=== PATIENT | male | born 1930 | race Caucasian/White ===

== ENCOUNTER 2018-05-08 21:56 | Inpatient (IN) | payer MEDICARE, BC ==
[2018-05-08] MEDS ORDERED: SODIUM CHLORIDE 0.9% 1,000 ML IV STA (22:25)
[2018-05-08 22:35] LABS: Basophils % (A) 0 %; Eosinophils # (A) 0.1 k/uL (0-0.7); Eosinophils % (A) 1 %; HCT 40.3 % (39.0-53.0); HGB 13.4 gm/dL (13.0-17.5); Lymphocytes # (A) 0.7 k/uL (1.0-4.8); Lymphocytes % (A) 11 %; MCH 31.2 pg (25.0-35.0); MCHC 33.3 g/dL (31.0-37.0); MCV 93.9 fL (80.0-100.0); Mean Platelet Volume 8.9; Monocytes # (A) 0.1 k/uL (0-1.0); Monocytes % (A) 2 %; Neutrophils # (A) 5.4 k/uL (1.3-7.7); Neutrophils % (A) 86 %; Platelet Count 109 k/uL (150-450); RBC 4.29 m/uL (4.30-5.90); RDW 13.8 % (11.5-15.5); WBC 6.3 k/uL (3.8-10.6)
[2018-05-08 22:48] LABS: Albumin 4.2 g/dL (3.5-5.0); Calcium 8.6 mg/dL (8.4-10.2); Potassium 4.8 mmol/L (3.5-5.1); Total Bilirubin 0.6 mg/dL (0.2-1.3); Total Protein 6.6 g/dL (6.3-8.2)
--- NOTE | 2018-05-08 22:51 | XR ---
EXAMINATION TYPE: XR chest 2V DATE OF EXAM: 05/08/2018 COMPARISON: NONE HISTORY: Chest pain TECHNIQUE: Frontal and lateral views of the chest are obtained. FINDINGS: Heart is enlarged. There is some pulmonary vascular congestion. There is some blunting of costophrenic angles. There is left axillary pacemaker with the lead tips in the right ventricle. Ther e is coarse interstitial pulmonary density. IMPRESSION: Pulmonary interstitial fibrosis. There is probably mild congestive heart failure.
[2018-05-08 22:58] LABS: INR 1.1 (<1.2); Partial Thromboplastin Time 25.7 sec (22.0-30.0); Prothrombin Time 10.3 sec (9.0-12.0)
[2018-05-08 23:05] LABS: Creatine Kinase MB 1.5 ng/mL (0.0-2.4)
[2018-05-08] MEDS ORDERED: ALBUTEROL NEBULIZED 2.5 MG/3 ML INHALATION STA (23:37)
[2018-05-08] MEDS ORDERED: DEXAMETHASONE 4 MG TAB PO STA (23:37)
[2018-05-08] MEDS ORDERED: IPRATROPIUM 0.5 MG/2.5 ML NEBU INHALATION STA (23:37)
[2018-05-08] MEDS: ASPIRIN 81 MG PO STA ×2 (23:49)
--- NOTE | 2018-05-09 00:06 | CT ---
EXAMINATION TYPE: CT angio chest DATE OF EXAM: 05/08/2018 11:42 PM COMPARISON: NONE HISTORY: No prior, chest pain and SOB, history of HTN, DM, and pacemaker, elevated d-dimer, R/O PE CT DLP: 849.60 mGycm Automated exposure control for dose reduction was used. CONTRAST: CTA scan of the thorax is performed with IV Contrast, patient injected with 95ml mL of Isovue 370, pu lmonary embolism protocol. There are 3-D post processed images.. FINDINGS: There are bilateral patchy areas of groundglass interstitial infiltrate. This is worse in the right l ower lobe. There are small pleural effusions. There is small pericardial effusion. There is some patc hy atelectasis at the lung bases. There is normal contrast opacification of the pulmonary arteries. I see no filling defects. There is no evidence of thoracic aortic dissection. Ascending aorta measures 4 cm. There is no mediastinal negro nopathy. There are no hilar masses. There are small right side calcified bronchial lymph nodes. There is spurring in the thoracic spine. IMPRESSION: NO EVIDENCE OF PULMONARY EMBOLISM. BILATERAL PLEURAL EFFUSIONS AND INTERSTITIAL PULMONARY INFILTRATES COULD RELATE TO CONGESTIVE HEART F AILURE. NO PULMONARY MASS SEEN. 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
[2018-05-09] MEDS ORDERED: HEPARIN SODIUM,PORCINE/D5W PMX 25,000 UNIT in DEXTROSE/WATER 1 500ML.BAG IV SCH (01:41)
[2018-05-09] MEDS ORDERED: HEPARIN SODIUM,PORCINE 5,000 UNIT/ML 1 ML VIAL IV STA (01:41)
[2018-05-09] MEDS ORDERED: D5W PMX IV SCH (01:58)
[2018-05-09] MEDS ORDERED: NACL 0.45% IV SCH (01:58)
[2018-05-09] MEDS ORDERED: HEPARIN SODIUM PORCINE IV SCH (01:58)
[2018-05-09] MEDS ORDERED: FUROSEMIDE 10 MG/ML 4 ML VIAL IV STA ×2 (02:10→03:38)
[2018-05-09] MEDS ORDERED: NALOXONE 0.4 MG/ML 1 ML VIAL IV PRN (02:13)
[2018-05-09] MEDS: HEPARIN SOD,PORK IN 0.45% NACL 25,000 UNIT in 0.45% NACL 1 500ML.BAG IV SCH (02:20)
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
[2018-05-09] MEDS: SODIUM CHLORIDE 0.9% 1,000 ML IV SCH (02:27)
[2018-05-09 03:22] VITALS: BMI 35.1
[2018-05-09] MEDS ORDERED: ALPRAZolam 0.5 MG TAB PO STA (03:37)
[2018-05-09 04:03] LABS: Glucose,Whole Blood 331 mg/dL (75-99)
[2018-05-09] MEDS ORDERED: IPRATROPIUM-ALBUTEROL 3 ML NEB INHALATION PRN (04:07)
[2018-05-09] MEDS ORDERED: INSULIN ASPART 100 UNIT/ML 1 ML 10 ML VIAL SQ ONE (04:08)
[2018-05-09] MEDS ORDERED: METOPROLOL TARTRATE 25 MG TAB PO ONE (04:30)
[2018-05-09] MEDS ORDERED: INSULIN DETEMIR 100 UNIT/ML 10 ML VIAL SQ ONE (04:30)
[2018-05-09 05:56] LABS: Glucose,Whole Blood 335 mg/dL (75-99)
[2018-05-09] MEDS: INSULIN ASPART 100 UNIT/ML 1 ML 10 ML VIAL SQ SCH ×4 (06:07→21:38)
[2018-05-09] MEDS: IPRATROPIUM-ALBUTEROL 3 ML NEB INHALATION SCH ×4 (08:56→20:46)
--- NOTE | 2018-05-09 11:17 | CONS ---
ANTONI Rose is an 87-year-old gentleman with history of hypertension, diabetes, dyslipidemia, sick sinus syndrome, status post permanent pacemaker, who sees Dr. Maria for his cardiac needs. Comes in complaining of shortness of breath. The patient has been having progressively worsening shortness of breath over the last several weeks. His Lasix dose and the nitrate dose was increased in the outpatient setting as he became more short of breath and had chest tightness, he came to the ER from where he got admitted. Patient complains of chest discomfort that he describes as chest pressure without definite radiation to neck, arm or back. His EKG showed sinus rhythm with right bundle branch block and nonspecific ST-T wave changes. The D-dimer was elevated and went on to have a CT scan of the chest that is negative for pulmonary embolism and had a 4 cm ascending aortic aneurysm. Patient's clinical presentation is consistent with a diagnosis of acute onset congestive heart failure and also non ST-segment elevation MT. The troponins have come back elevated. I talked to patient about undergoing cardiac catheterization to evaluate for ischemic heart disease. Understanding risks, benefits, he does not want to have anything done at this time. PAST MEDICAL HISTORY: Significant for hypertension, diabetes. MEDICATIONS: Include Norvasc 5 daily, Hytrin, Zocor, Lopressor 25 b.i.d., Zestril 10 mg daily, Imdur 30 mg daily, insulin, Lasix and Proscar. ALLERGIES: There are no known drug allergies. FAMILY HISTORY: Negative for premature coronary artery disease. SOCIAL HISTORY: Negative for current smoking, EtOH abuse, or drug abuse. REVIEW OF SYSTEMS: HEENT is unremarkable. CARDIAC: As described above. RESPIRATORY: As described above. GI: Negative. GENITOURINARY: Negative. ALLERGY/IMMUNOLOGY: Negative. SKIN: Negative. MUSCULOSKELETAL: Negative. ENDOCRINE: Negative. DERM: Negative. CONSTITUTIONAL: Negative. ONCOLOGICAL: Negative. Rest of the system review is not relevant. PHYSICAL EXAM: Patient is comfortable at rest. Heart rate is 80 beats per minute. Blood pressure is 107/68, respiratory rate is 18. Chest exam reveals diminished air entry at the bases with occasional rhonchi. Heart exam reveals first and second heart sounds. No gallop. Has an ejection systolic murmur in the aortic area. Abdomen is soft. Exam of extremities reveals 1+ edema. Peripheral pulses are palpable. EKG shows sinus rhythm with right bundle branch block and left axis deviation. ASSESSMENT: 1. Acute onset congestive heart failure. 2. Sick sinus syndrome, status post permanent pacemaker. 3. Non ST-segment elevation myocardial infarction. 4. Hypertension. PLAN: I will obtain a 2D echo to evaluate LV function. Treat the patient with IV Lasix. Start the patient back on beta blockers, JESSICA inhibitors and nitrates. Review records from Dr. Maria's office who the patient follows regularly. ROSALINA / ALEXISN: [id number] /
[2018-05-09] MEDS: FUROSEMIDE 10 MG/ML 4 ML VIAL IV SCH ×2 (11:23→20:35)
[2018-05-09] MEDS: METOPROLOL TARTRATE 25 MG TAB PO SCH ×2 (11:24→20:35)
[2018-05-09] MEDS: LISINOPRIL 10 MG TAB PO SCH (11:24)
[2018-05-09] MEDS: ISOSORBIDE MONONITRATE ER 30 MG TAB.ER.24H PO SCH (11:24)
[2018-05-09 11:34] LABS: Glucose,Whole Blood 339 mg/dL (75-99)
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
--- NOTE | 2018-05-09 12:44 | ECHOF ---
Referral Reason:nstemi, chf MEASUREMENTS -------- HEIGHT: 175.3 cm WEIGHT: 116.6 kg BP: 117/68 IVSd: 1.2 cm (0.6 - 1.1) LVIDd: 5.7 cm (3.9 - 5.3) LVPWd: 1.7 cm (0.6 - 1.1) IVSs: 1.8 cm LVIDs: 4.8 cm LVPWs: 1.7 cm LAESV Index (A-L): 53.52 ml/m Ao Diam: 3.9 cm (2.0 - 3.7) LA Diam: 4.1 cm (2.7 - 3.8) MV E Jose Cruz: 1.04 m/s MV DecT: 200 ms MV A Jose Cruz: 0.62 m/s MV E/A Ratio: 1.69 RAP: 5.00 mmHg RVSP: 31.50 mmHg FINDINGS -------- Sinus rhythm. This was a techncally difficult study with suboptimal views, , Lumason utilized for enhancement of im ages. The left ventricular size is normal. There is mild concentric left ventricular hypertrophy. Overa ll left ventricular systolic function is low-normal with, an EF between 50 - 55 %. Prominent Calcifie d chordae noted. The right ventricle is normal in size. The left atrium is mildly dilated. LA is severely dilated >40 ml/m2 The right atrial size is normal. 5.0mg OF Lumason UTLIZED: 2 OR MORE WALL SEGMENTS NOT VISUALIZED. There is mild aortic valve sclerosis. There is no evidence of aortic regurgitation. Mild mitral annular calcification present. Mild mitral regurgitation is present. Mild tricuspid regurgitation present. There is no evidence of pulmonary hypertension. The right v entricular systolic pressure, as measured by Doppler, is 31.50mmHg. The pulmonic valve was not well visualized. The aortic root size is normal. There is no pericardial effusion. CONCLUSIONS -------- 1. This was a techncally difficult study with suboptimal views, , Lumason utilized for enhancement of images. 2. The left ventricular size is normal. 3. There is mild concentric left ventricular hypertrophy. 4. Overall left ventricular systolic function is low-normal with, an EF between 50 - 55 %. 5. The right ventricle is normal in size. 6. The left atrium is mildly dilated. 7. LA is severely dilated >40 ml/m2 8. The right atrial size is normal. 9. 5.0mg OF Lumason UTLIZED: 2 OR MORE WALL SEGMENTS NOT VISUALIZED. 10. There is mild aortic valve sclerosis. 11. Mild mitral annular calcification present. 12. Mild mitral regurgitation is present. 13. Mild tricuspid regurgitation present. 14. There is no evidence of pulmonary hypertension. 15. The right ventricular systolic pressure, as measured by Doppler, is 31.50mmHg. 16. The pulmonic valve was not well visualized. 17. The aortic root size is normal. 18. There is no pericardial effusion. ELECTRIC SERVICEMAN: Liseth Stratton RDCS
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
[2018-05-09] MEDS: HEPARIN SODIUM,PORCINE 5,000 UNIT/ML 1 ML VIAL IV PRN (16:56)
[2018-05-09 17:12] LABS: Glucose,Whole Blood 294 mg/dL (75-99)
[2018-05-09 17:23] LABS: Hemoglobin A1C 6.7 % (4.0-6.0)
[2018-05-09 21:05] LABS: Glucose,Whole Blood 300 mg/dL (75-99)
[2018-05-09] MEDS: ALPRAZolam 0.5 MG TAB PO PRN (22:19)
[2018-05-09] MEDS: traZODone HCL 50 MG TAB PO SCH (22:37)
[2018-05-10] MEDS: HEPARIN SOD,PORK IN 0.45% NACL 25,000 UNIT in 0.45% NACL 1 500ML.BAG IV SCH ×2 (02:15→14:53)
[2018-05-10] MEDS: SODIUM CHLORIDE 0.9% 1,000 ML IV SCH (04:48)
[2018-05-10] MEDS: HYDROcodone/APAP 7.5-325MG 1 EACH TAB PO PRN (04:59)
[2018-05-10 06:05] LABS: Glucose,Whole Blood 205 mg/dL (75-99)
[2018-05-10] MEDS: INSULIN ASPART 100 UNIT/ML 1 ML 10 ML VIAL SQ SCH ×4 (07:03→20:52)
[2018-05-10] MEDS: IPRATROPIUM-ALBUTEROL 3 ML NEB INHALATION SCH ×4 (08:52→19:42)
[2018-05-10] MEDS: METOPROLOL TARTRATE 25 MG TAB PO SCH ×2 (09:42→20:38)
[2018-05-10] MEDS: LISINOPRIL 10 MG TAB PO SCH (09:42)
[2018-05-10] MEDS: ISOSORBIDE MONONITRATE ER 30 MG TAB.ER.24H PO SCH (09:42)
[2018-05-10] MEDS: FUROSEMIDE 10 MG/ML 4 ML VIAL IV SCH ×2 (09:42→20:39)
[2018-05-10] MEDS: ASPIRIN 325 MG TAB PO SCH (09:42)
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
--- NOTE | 2018-05-10 10:58 | P.PN ---
Subjective Progress Note Date: 05/10/18 Principal diagnosis: CHF This is a pleasant 87-year-old male patient who sees Dr. Maria in the office with a past medical history significant for sick sinus syndrome status post permanent pacemaker, hypertension, dyslipidemia, was admitted to the hospital with shortness of breath and was diagnosed was congestive heart failure exacerbation. The echocardiogram revealed normal LV function. On follow-up with the patient today, he stated that the shortness of breath is better. Denies having any chest pain or chest discomfort. The cardiac enzymes were checked and came in to be slightly abnormal. On physical examination, he does have bilateral expiratory wheezing and still have bilateral lower extremities edema. The patient currently on Lasix IV Objective - Vital Signs Vital signs: Vital Signs Temp 97.5 F L 05/10/18 09:38 Pulse 90 05/10/18 09:38 Resp 16 05/10/18 09:38 BP 112/65 05/10/18 09:38 Pulse Ox 97 05/10/18 09:38 Intake & Output 05/09/18 05/10/18 05/10/18 18:59 06:59 18:59 Intake Total 671.700 864.3 373.933 Balance 671.700 864.3 373.933 Weight 115.6 kg Intake: Intake, IV Titration 311.700 384.3 133.933 Amount Heparin Sod,Pork in 0.45% 311.700 188.3 133.933 NaCl 25,000 unit In 0.45 % NaCl 1 500ml.bag @ Titrate 20 mls/hr IV . Q24H [facility] Rx#:[id number] Heparin Sodium,Porcine/ 56 D5w Pmx 25,000 unit In 0. 45% NaCl 1 500ml.bag @ Titrate 20 mls/hr IV . Q24H [facility] Rx#:[id number] Sodium Chloride 0.9% 1, 140 000 ml @ 20 mls/hr IV . Q24H [facility] Rx#:[id number] Oral 360 480 240 Other: Voiding Method Urinal Urinal Urinal # Voids 1 3 # Bowel Movements 1 - Constitutional General appearance: Present: no acute distress - Respiratory Respiratory: bilateral: rhonchi - Cardiovascular Heart sounds: normal: S1, S2 - Labs CBC & Chem 7: 05/08/18 20:21 07/05/18 20:21 Labs: Abnormal Lab Results - Last 24 Hours (Table) 05/09/18 05/09/18 05/09/18 Range/Units 11:30 17:00 21:03 APTT (22.0-30.0) sec POC Glucose (mg/dL) 339 H 294 H 300 H (75-99) mg/dL 05/09/18 05/10/18 05/10/18 Range/Units 21:04 05:43 06:01 APTT 41.2 H 40.5 H (22.0-30.0) sec POC Glucose (mg/dL) 205 H (75-99) mg/dL Assessment and Plan Assessment: Assessment #1 congestive heart failure secondary to diastolic dysfunction, acute on chronic #2 sick sinus syndrome and status post permanent pacemaker implantation #3 hypertension #4 dyslipidemia Plan #1 continue the Lasix IV and continue monitor the kidney function and electrolytes #2 consider medical treatment for acute non-ST patient myocardial infarction. The patient is an 87-year-old and he expressed the wishes that he does not want to have any heart catheterization which I think is not unreasonable in the absence of any chest pain or chest discomfort #3 follow-up with the patient
[2018-05-10 11:30] LABS: Glucose,Whole Blood 293 mg/dL (75-99)
[2018-05-10] MEDS ORDERED: INSULIN NPH/REG INSULIN 70/30 300 UNIT/3 ML VIAL SQ ONE (11:32)
[2018-05-10] MEDS: amLODIPine 5 MG TAB PO SCH (12:31)
[2018-05-10] MEDS: VIT A,C & E-LUTEIN-MINERALS 1 EACH TAB PO SCH (12:34)
[2018-05-10] MEDS: HEPARIN SODIUM,PORCINE 5,000 UNIT/ML 1 ML VIAL IV PRN (14:32)
[2018-05-10 16:43] LABS: Glucose,Whole Blood 274 mg/dL (75-99)
[2018-05-10] MEDS: INSULIN NPH/REG INSULIN 70/30 300 UNIT/3 ML VIAL SQ SCH (17:01)
[2018-05-10] MEDS: ATORVASTATIN 20 MG TAB PO SCH (20:38)
[2018-05-10] MEDS: FINASTERIDE 5 MG TAB PO SCH (20:38)
[2018-05-10] MEDS: DOXAZOSIN 4 MG TAB PO SCH (20:38)
[2018-05-10 20:41] LABS: Glucose,Whole Blood 256 mg/dL (75-99)
[2018-05-10] MEDS: traZODone HCL 50 MG TAB PO SCH (21:28)
[2018-05-10] MEDS: ALPRAZolam 0.5 MG TAB PO PRN (21:28)
--- NOTE | 2018-05-10 23:01 | P.PN ---
Subjective Progress Note Date: 05/10/18 Principal diagnosis: Acute CHF exacerbation. Diastolic dysfunction 87-year-old pleasant gentleman came in with complaints of chest pressure-like sensation which started yesterday patient has minimally elevated troponin. Patient was also having shortness of breath. Patient does have elevated JVD does have pulmonary edema bilateral pleural effusions. Patient is doing much better with IV Lasix now patient does take Lasix but never had any history of congestive heart failure in the past patient feels better after the diuretic therapy. Patient chest pressure like sensation relieved with the dose of aspirin and the nitroglycerin and patient barely has any pain at this point of time patient has moderate to severe chest pressure yesterday which lasted until he took sublingual nitroglycerin his pain is nonexertional although started after eating. 05/10/2018 Patient's breathing status is improving with IV diuresis. Currently saturating well on nasal cannula. No complaints of chest pain or shortness of breath. Patient is currently on 6 L high flow nasal cannula. 2-D echocardiogram showed ejection fraction 50-50%. Patient is currently on IV diuresis with 40 mg of Lasix every 12. Patient will be continued on IV heparin for 48 hours. Cardiology and pulmonary is following. All other review of systems negative except the above Active Medications Hydrocodone Bitart/Acetaminophen ([place] 7.5-325) 1 each PO TID PRN PRN Reason: Pain Last Admin: 05/10/18 04:59 Dose: 1 each Albuterol/Ipratropium (Duoneb 0.5 Mg-3 Mg/3 Ml Soln) 3 ml INHALATION RT-Q2H PRN PRN Reason: Shortness Of Breath Or Wheezing Albuterol/Ipratropium (Duoneb 0.5 Mg-3 Mg/3 Ml Soln) 3 ml INHALATION RT-QID [facility] Last Admin: 05/10/18 19:42 Dose: 3 ml Alprazolam (Xanax) 0.5 mg PO DAILY PRN PRN Reason: Anxiety Last Admin: 05/10/18 21:28 Dose: 0.5 mg Amlodipine Besylate ([facility]) [facility] Last Admin: 05/10/18 12:31 Dose: Not Given Aspirin (Aspirin) 325 mg PO DAILY [facility] Last Admin: 05/10/18 09:42 Dose: 325 mg Atorvastatin Calcium (Lipitor) 20 mg PO [facility] Last Admin: 05/10/18 20:38 Dose: 20 mg Cholecalciferol (Vitamin D3) 1,000 unit PO DAILY [facility] Doxazosin Mesylate (Cardura) 4 mg PO HS [facility] Last Admin: 05/10/18 20:38 Dose: 4 mg Finasteride (Proscar) 5 mg PO HS [facility] Last Admin: 05/10/18 20:38 Dose: 5 mg Furosemide (Lasix) 40 mg IV Q12HR [facility] Last Admin: 05/10/18 20:39 Dose: 40 mg Heparin Sodium (Porcine) (Heparin) 0 unit IV PER PROTOCOL PRN; Protocol PRN Reason: Low PTT Last Admin: 05/10/18 14:32 Dose: 2,980 unit Heparin Sodium/Sodium Chloride (25,000 unit/ Sodium Chloride) 500 mls @ 20 mls/ hr IV .Q24H [facility]; Protocol Last Admin: 05/10/18 14:53 Dose: 36.7 mls/hr, 36.7 mls/hr Sodium Chloride (Saline 0.9%) 1,000 mls @ 20 mls/hr IV .Q24H [facility] Last Admin: 05/10/18 04:48 Dose: 20 mls/hr Insulin Aspart (Novolog) 0 unit SQ ACHS [facility]; Protocol Last Admin: 05/10/18 20:52 Dose: 5 unit Insulin Human Isoph/Insulin Regular (Humulin 70/30 Vial) 34 unit SQ AC-SUPPER [facility] Last Admin: 05/10/18 17:01 Dose: 34 unit Insulin Human Isoph/Insulin Regular (Humulin 70/30 Vial) 38 unit SQ AC-BRKFST [facility] Isosorbide Mononitrate (Imdur) 30 mg PO QAM [facility] Last Admin: 05/10/18 09:42 Dose: 30 mg Lisinopril (Zestril) 10 mg PO DAILY [facility] Last Admin: 05/10/18 09:42 Dose: 10 mg Metoprolol Tartrate (Lopressor) 25 mg PO BID [facility] Last Admin: 05/10/18 20:38 Dose: 25 mg Multivitamins/Minerals (Ivite) 1 each PO DAILY@1200 [facility] Last Admin: 05/10/18 12:34 Dose: 1 each Naloxone HCl (Narcan) 0.2 mg IV Q2M PRN PRN Reason: Opioid Reversal Trazodone HCl (Desyrel) 150 mg PO HS [facility] Last Admin: 05/10/18 21:28 Dose: 150 mg Objective - Vital Signs Vital signs: Vital Signs Temp 97.5 F L 05/10/18 09:38 Pulse 94 05/10/18 11:23 Resp 16 05/10/18 09:38 BP 112/65 05/10/18 09:38 Pulse Ox 97 05/10/18 09:38 Intake & Output 05/09/18 05/10/18 05/10/18 18:59 06:59 18:59 Intake Total 671.700 864.3 373.933 Balance 671.700 864.3 373.933 Weight 115.6 kg Intake: Intake, IV Titration 311.700 384.3 133.933 Amount Heparin Sod,Pork in 0.45% 311.700 188.3 133.933 NaCl 25,000 unit In 0.45 % NaCl 1 500ml.bag @ Titrate 20 mls/hr IV . Q24H [facility] Rx#:[id number] Heparin Sodium,Porcine/ 56 D5w Pmx 25,000 unit In 0. 45% NaCl 1 500ml.bag @ Titrate 20 mls/hr IV . Q24H [facility] Rx#:[id number] Sodium Chloride 0.9% 1, 140 000 ml @ 20 mls/hr IV . Q24H [facility] Rx#:[id number] Oral 360 480 240 Other: Voiding Method Urinal Urinal Urinal # Voids 1 3 # Bowel Movements 1 - Exam PHYSICAL EXAMINATION: Patient is lying in the bed comfortably, no acute distress, awake alert and oriented.. HEENT: Normocephalic. Neck is supple. Pupils reactive. Nostrils clear. Oral cavity is moist. Ears reveal no drainage. Neck reveals no JVD, carotid bruits, or thyromegaly. CHEST EXAMINATION: Trachea is central. Symmetrical expansion. Bilateral basilar crackles and rhonchi positive. No wheezing. Lung rousseau clear to auscultation and percussion. CARDIAC: Normal S1, S2 with no gallops. No murmurs ABDOMEN: Soft. Bowel sounds normal. No organomegaly. No abdominal bruits. Extremities: 2+ edema. No clubbing or cyanosis Neurologically awake, alert, oriented x3 with well-coordinated movements. No focal deficits noted Skin: No rash or skin lesions. Psychiatric: Coperative. Nonsuicidal Musculoskeletal: No joint swelling or deformity. Normal range of motion. - Labs CBC & Chem 7: 05/08/18 20:21 05/08/18 20:21 Labs: Abnormal Lab Results - Last 24 Hours (Table) 05/09/18 05/09/18 05/09/18 Range/Units 11:30 17:00 21:03 APTT (22.0-30.0) sec POC Glucose (mg/dL) 339 H 294 H 300 H (75-99) mg/dL 05/09/18 05/10/18 05/10/18 Range/Units 21:04 05:43 06:01 APTT 41.2 H 40.5 H (22.0-30.0) sec POC Glucose (mg/dL) 205 H (75-99) mg/dL 05/10/18 Range/Units 11:28 APTT (22.0-30.0) sec POC Glucose (mg/dL) 293 H (75-99) mg/dL Assessment and Plan Assessment: - Non-ST elevation microinfarction: Continue with IV heparin. patient is an 87- year-old and he expressed the wishes that he does not want to have any heart catheterization. Cardiology recommends medical management at this time. -Shortness of breath secondary to acute CHF with diastolic dysfunction -Sick sinus syndrome with history of pacemaker placement -Hypertension -Hyperlipidemia - Diabetes type 2. Insulin-dependent. Patient was started back on home dose -Benign prostatic hypertrophy -History of subdural hematoma in the past. Plan: Patient will be continued on IV diuresis. Continue with oxygen therapy and dietary titrate down. Continue the medical management for acute IN. Patient is improving symptomatically. Continue with insulin 70/30 as per home dose along with insulin sliding scale Continue the current management and further recommendations based on the clinical course. Prognosis is guarded with multiple medical problems and comorbid conditions. Time with Patient: Greater than 30
[2018-05-11] MEDS: SODIUM CHLORIDE 0.9% 1,000 ML IV SCH (02:17)
[2018-05-11 05:45] LABS: Glucose,Whole Blood 112 mg/dL (75-99)
[2018-05-11 05:54] LABS: Basophils % (A) 0 %; Eosinophils # (A) 0.1 k/uL (0-0.7); Eosinophils % (A) 1 %; HCT 37.2 % (39.0-53.0); HGB 12.2 gm/dL (13.0-17.5); Lymphocytes # (A) 1.5 k/uL (1.0-4.8); Lymphocytes % (A) 24 %; MCH 31.3 pg (25.0-35.0); MCHC 32.9 g/dL (31.0-37.0); MCV 95.1 fL (80.0-100.0); Mean Platelet Volume 8.7; Monocytes # (A) 0.4 k/uL (0-1.0); Monocytes % (A) 7 %; Neutrophils # (A) 4.1 k/uL (1.3-7.7); Neutrophils % (A) 67 %; Platelet Count 100 k/uL (150-450); RBC 3.91 m/uL (4.30-5.90); RDW 14.2 % (11.5-15.5); WBC 6.1 k/uL (3.8-10.6)
[2018-05-11] MEDS: INSULIN ASPART 100 UNIT/ML 1 ML 10 ML VIAL SQ SCH ×4 (05:59→21:21)
[2018-05-11 06:22] LABS: Calcium 8.6 mg/dL (8.4-10.2); Potassium 4.2 mmol/L (3.5-5.1)
[2018-05-11] MEDS: INSULIN NPH/REG INSULIN 70/30 300 UNIT/3 ML VIAL SQ SCH ×2 (06:49→16:59)
[2018-05-11] MEDS: HYDROcodone/APAP 7.5-325MG 1 EACH TAB PO PRN (06:49)
[2018-05-11] MEDS: IPRATROPIUM-ALBUTEROL 3 ML NEB INHALATION SCH ×4 (08:01→20:39)
--- NOTE | 2018-05-11 08:34 | XR ---
EXAMINATION TYPE: XR chest 1V portable DATE OF EXAM: 05/11/2018 HISTORY: CHF. REFERENCE: Previous study dated 05/08/2018. FINDINGS: There is a bipolar pacemaker in place on the left. The heart is mildly enlarged. Pulmonary vasculature has improved. There is no dequan edema at this giovana e. There is blunting of the CP angles. I could not exclude small effusions. IMPRESSION: 1. MILD CARDIOMEGALY. 2. IMPROVED VOLUME STATUS. 3. I COULD NOT EXCLUDE SMALL SMALL, BILATERAL EFFUSIONS.
[2018-05-11] MEDS: METOPROLOL TARTRATE 25 MG TAB PO SCH ×2 (09:37→20:05)
[2018-05-11] MEDS: LISINOPRIL 10 MG TAB PO SCH (09:37)
[2018-05-11] MEDS: CHOLECALCIFEROL 1,000 UNIT TAB PO SCH (09:37)
[2018-05-11] MEDS: ASPIRIN 325 MG TAB PO SCH (09:37)
[2018-05-11] MEDS: FUROSEMIDE 10 MG/ML 4 ML VIAL IV SCH ×2 (09:37→20:04)
[2018-05-11] MEDS: ISOSORBIDE MONONITRATE ER 30 MG TAB.ER.24H PO SCH (09:37)
--- NOTE | 2018-05-11 11:04 | P.PN ---
Subjective Progress Note Date: 05/11/18 Principal diagnosis: Myocardial infarction Progress note dated 05/11/2018 This is an 87-year-old male well-known to me. He admitted with a diagnosis of non-ST segment elevation myocardial infarction and mild fluid overload. The patient is doing a lot better. Chest x-rays improved. The patient responded very nicely to Lasix. The patient otherwise is doing well. He would like to be treated medically for his cardiac disease. Not interested in a cardiac catheterization at this time. He has a history of diabetes hyperlipidemia obesity hypertension BPH and subdural hematoma requiring evacuation 2. He is also status post pacemaker insertion. Overall the patient's feeling better today. Chest x-ray is improved. White count 6.1 hemoglobin 12.2 hematocrit 37.2 platelet count is 100,000. PTT 66.2 sodium potassium chloride CO2 all normal BUN and creatinine were 32 and 1.20. Objective - Vital Signs Vital signs: Vital Signs Temp 96.6 F L 05/11/18 08:00 Pulse 77 05/11/18 08:00 Resp 16 05/11/18 08:00 BP 114/68 05/11/18 08:00 Pulse Ox 97 05/11/18 08:00 Intake & Output 05/10/18 05/11/18 05/11/18 18:59 06:59 18:59 Intake Total 1586.278 440 240 Output Total 375 800 675 Balance 1211.278 -360 -435 Weight 115.3 kg Intake: Intake, IV Titration 786.278 200 Amount Heparin Sod,Pork in 0.45% 379.278 NaCl 25,000 unit In 0.45 % NaCl 1 500ml.bag @ Titrate 20 mls/hr IV . Q24H [facility] Rx#:[id number] Heparin Sodium,Porcine/ 227 100 D5w Pmx 25,000 unit In 0. 45% NaCl 1 500ml.bag @ Titrate 20 mls/hr IV . Q24H [facility] Rx#:[id number] Sodium Chloride 0.9% 1, 180 100 000 ml @ 20 mls/hr IV . Q24H [facility] Rx#:[id number] Oral 800 240 240 Output: Urine 375 800 675 Other: Voiding Method Urinal Urinal Urinal # Voids 3 - Exam No acute distress, oriented 3. HEENT examination is grossly unremarkable. Mucous membranes are moist. No oral lesions. Neck supple. Full range of motion. No adenopathy thyromegaly or neck vein distention. Cardiovascular examination reveals regular rhythm rate. S1-S2 normal. No S3 or S4. No discernible murmur noted. Lungs reveal minimal bibasilar crackles. Breath sounds equal bilaterally. No rhonchi or wheezes. Abdomen soft bowel sounds are heard. No masses or tenderness. Extremities are intact. No cyanosis clubbing or significant edema. Skin is without rash or lesion. Neurologic examination is brief but nonfocal. - Labs CBC & Chem 7: 05/11/18 05:31 05/11/18 05:31 Labs: Abnormal Lab Results - Last 24 Hours (Table) 05/10/18 05/10/18 05/10/18 Range/Units 11:28 12:52 16:29 RBC (4.30-5.90) m/uL Hgb (13.0-17.5) gm/dL Hct (39.0-53.0) % Plt Count (150-450) k/uL APTT 43.1 H (22.0-30.0) sec BUN (9-20) mg/dL POC Glucose (mg/dL) 293 H 274 H (75-99) mg/dL 05/10/18 05/10/18 05/11/18 Range/Units 20:05 20:40 05:31 RBC 3.91 L (4.30-5.90) m/uL Hgb 12.2 L (13.0-17.5) gm/dL Hct 37.2 L (39.0-53.0) % Plt Count 100 L (150-450) k/uL APTT 69.2 H (22.0-30.0) sec BUN (9-20) mg/dL POC Glucose (mg/dL) 256 H (75-99) mg/dL 05/11/18 05/11/18 05/11/18 Range/Units 05:31 05:43 08:11 RBC (4.30-5.90) m/uL Hgb (13.0-17.5) gm/dL Hct (39.0-53.0) % Plt Count (150-450) k/uL APTT 66.2 H (22.0-30.0) sec BUN 32 H (9-20) mg/dL POC Glucose (mg/dL) 112 H (75-99) mg/dL Assessment and Plan Assessment: Assessment Non-ST segment elevation myocardial infarction Mild to moderate CHF, improved. History of diabetes mellitus History of hyperlipidemia History of hypertension History of BPH Status post pacemaker insertion Previous history of subdural hematoma, status post evacuation area wrapped chronic back and hip pain Multiple other medical problems and comorbidities Plan: Plan dated 05/09/2018 Cardiology is currently seeing the patient and will make a decision as to how to proceed. The patient just recently had an echocardiogram which has not been read as yet. His troponin levels were elevated. Chest x-ray showed evidence of fluid overload/heart failure and N-terminal proBNP was elevated. The rest of his labs look bad. He is chronically low platelets. This is not a new finding. He seems to be in pretty good spirits. He has no intrinsic pulmonary disease. Prognosis is guarded. We'll continue to follow closely. Plan dated 05/11/2018 The patient's continues to do relatively well. Chest x-ray from this morning shows improvement Lyme status. The patient clinically is stable. He is somewhat short of breath on exertion. He has chosen not to have cardiac catheterization at this time. We will continue to follow. Once discharged, the patient will follow with me in the office. Additional recommendations are made. Prognosis is guarded. Time with Patient: Less than 30
--- NOTE | 2018-05-11 11:26 | P.PN ---
Subjective Progress Note Date: 05/11/18 Principal diagnosis: CHF This is a pleasant 87-year-old male patient who sees Dr. Maria in the office with a past medical history significant for sick sinus syndrome status post permanent pacemaker, hypertension, dyslipidemia, was admitted to the hospital with shortness of breath and was diagnosed was congestive heart failure exacerbation. He also was ruled out for acute non-ST deviation myocardial infarction The echocardiogram revealed normal LV function. On follow-up with the patient today, he is looking better indeterminable shortness of breath. He stated that he has been up and around and the shortness of breath is improved. No chest pain or chest discomfort. No bilateral lower extremities edema. I am going to continue the IV Lasix for additional 24 hours. I will DC the heparin. Continue the aspirin as well as a statin and also metoprolol. Objective - Vital Signs Vital signs: Vital Signs Temp 96.6 F L 05/11/18 08:00 Pulse 77 05/11/18 08:00 Resp 16 05/11/18 08:00 BP 114/68 05/11/18 08:00 Pulse Ox 97 05/11/18 08:00 Intake & Output 05/10/18 05/11/18 05/11/18 18:59 06:59 18:59 Intake Total 1586.278 440 240 Output Total 375 800 675 Balance 1211.278 -360 -435 Weight 115.3 kg Intake: Intake, IV Titration 786.278 200 Amount Heparin Sod,Pork in 0.45% 379.278 NaCl 25,000 unit In 0.45 % NaCl 1 500ml.bag @ Titrate 20 mls/hr IV . Q24H [facility] Rx#:[id number] Heparin Sodium,Porcine/ 227 100 D5w Pmx 25,000 unit In 0. 45% NaCl 1 500ml.bag @ Titrate 20 mls/hr IV . Q24H [facility] Rx#:[id number] Sodium Chloride 0.9% 1, 180 100 000 ml @ 20 mls/hr IV . Q24H [facility] Rx#:[id number] Oral 800 240 240 Output: Urine 375 800 675 Other: Voiding Method Urinal Urinal Urinal # Voids 3 - Constitutional General appearance: Present: no acute distress - Respiratory Respiratory: bilateral: diminished - Cardiovascular Rhythm: regular Heart sounds: normal: S1, S2 - Labs CBC & Chem 7: 05/11/18 05:31 05/11/18 05:31 Labs: Abnormal Lab Results - Last 24 Hours (Table) 05/10/18 05/10/18 05/10/18 Range/Units 11:28 12:52 16:29 RBC (4.30-5.90) m/uL Hgb (13.0-17.5) gm/dL Hct (39.0-53.0) % Plt Count (150-450) k/uL APTT 43.1 H (22.0-30.0) sec BUN (9-20) mg/dL POC Glucose (mg/dL) 293 H 274 H (75-99) mg/dL 05/10/18 05/10/18 05/11/18 Range/Units 20:05 20:40 05:31 RBC 3.91 L (4.30-5.90) m/uL Hgb 12.2 L (13.0-17.5) gm/dL Hct 37.2 L (39.0-53.0) % Plt Count 100 L (150-450) k/uL APTT 69.2 H (22.0-30.0) sec BUN (9-20) mg/dL POC Glucose (mg/dL) 256 H (75-99) mg/dL 05/11/18 05/11/18 05/11/18 Range/Units 05:31 05:43 08:11 RBC (4.30-5.90) m/uL Hgb (13.0-17.5) gm/dL Hct (39.0-53.0) % Plt Count (150-450) k/uL APTT 66.2 H (22.0-30.0) sec BUN 32 H (9-20) mg/dL POC Glucose (mg/dL) 112 H (75-99) mg/dL Assessment and Plan Assessment: Assessment #1 congestive heart failure secondary to diastolic dysfunction, acute on chronic #2 sick sinus syndrome and status post permanent pacemaker implantation #3 hypertension #4 dyslipidemia Plan #1 continue the Lasix IV and continue monitor the kidney function and electrolytes #2 consider medical treatment for acute non-ST patient myocardial infarction. The patient is an 87-year-old and he expressed the wishes that he does not want to have any heart catheterization which I think is not unreasonable in the absence of any chest pain or chest discomfort #3 follow-up with the patient
[2018-05-11 11:36] LABS: Glucose,Whole Blood 76 mg/dL (75-99)
[2018-05-11] MEDS: amLODIPine 5 MG TAB PO SCH (12:38)
[2018-05-11] MEDS: SERTRALINE 50 MG TAB PO SCH (12:42)
[2018-05-11] MEDS: VIT A,C & E-LUTEIN-MINERALS 1 EACH TAB PO SCH (12:42)
[2018-05-11 16:23] LABS: Glucose,Whole Blood 146 mg/dL (75-99)
[2018-05-11] MEDS ORDERED: BISACODYL 5 MG TABLET.DR PO PRN (19:49)
[2018-05-11 19:54] VITALS: RESP 18
[2018-05-11] MEDS: ATORVASTATIN 20 MG TAB PO SCH (20:05)
[2018-05-11] MEDS: DOXAZOSIN 4 MG TAB PO SCH (20:05)
[2018-05-11] MEDS: FINASTERIDE 5 MG TAB PO SCH (20:05)
[2018-05-11 21:21] LABS: Glucose,Whole Blood 169 mg/dL (75-99)
[2018-05-11] MEDS: traZODone HCL 50 MG TAB PO SCH (21:24)
[2018-05-11] MEDS: ALPRAZolam 0.5 MG TAB PO PRN (21:24)
--- NOTE | 2018-05-11 23:18 | P.PN ---
Subjective Progress Note Date: 05/11/18 Principal diagnosis: Acute CHF exacerbation. Diastolic dysfunction 87-year-old pleasant gentleman came in with complaints of chest pressure-like sensation which started yesterday patient has minimally elevated troponin. Patient was also having shortness of breath. Patient does have elevated JVD does have pulmonary edema bilateral pleural effusions. Patient is doing much better with IV Lasix now patient does take Lasix but never had any history of congestive heart failure in the past patient feels better after the diuretic therapy. Patient chest pressure like sensation relieved with the dose of aspirin and the nitroglycerin and patient barely has any pain at this point of time patient has moderate to severe chest pressure yesterday which lasted until he took sublingual nitroglycerin his pain is nonexertional although started after eating. 05/10/2018 Patient's breathing status is improving with IV diuresis. Currently saturating well on nasal cannula. No complaints of chest pain or shortness of breath. Patient is currently on 6 L high flow nasal cannula. 2-D echocardiogram showed ejection fraction 50-50%. Patient is currently on IV diuresis with 40 mg of Lasix every 12. Patient will be continued on IV heparin for 48 hours. Cardiology and pulmonary is following. 05/11/2018 Patient's breathing status is continues to improve. Anticipate saturating on nausea cannula at 4 L. Patient is being continued on IV diuresis with Lasix. No complaints of chest pain. No nausea vomiting or abdominal pain. No other acute overnight issues. All other review of systems negative except the above Active Medications Hydrocodone Bitart/Acetaminophen ([place] 7.5-325) 1 each PO TID PRN PRN Reason: Pain Last Admin: 05/10/18 04:59 Dose: 1 each Albuterol/Ipratropium (Duoneb 0.5 Mg-3 Mg/3 Ml Soln) 3 ml INHALATION RT-Q2H PRN PRN Reason: Shortness Of Breath Or Wheezing Albuterol/Ipratropium (Duoneb 0.5 Mg-3 Mg/3 Ml Soln) 3 ml INHALATION RT-QID [facility] Last Admin: 05/10/18 19:42 Dose: 3 ml Alprazolam (Xanax) 0.5 mg PO DAILY PRN PRN Reason: Anxiety Last Admin: 05/10/18 21:28 Dose: 0.5 mg Amlodipine Besylate (Norvasc) 5 mg PO QAM [facility] Last Admin: 05/10/18 12:31 Dose: Not Given Aspirin (Aspirin) 325 mg PO DAILY [facility] Last Admin: 05/10/18 09:42 Dose: 325 mg Atorvastatin Calcium (Lipitor) 20 mg PO HS [facility] Last Admin: 05/10/18 20:38 Dose: 20 mg Cholecalciferol (Vitamin D3) 1,000 unit PO DAILY [facility] Doxazosin Mesylate (Cardura) 4 mg PO HS [facility] Last Admin: 05/10/18 20:38 Dose: 4 mg Finasteride (Proscar) 5 mg PO HS [facility] Last Admin: 05/10/18 20:38 Dose: 5 mg Furosemide (Lasix) 40 mg IV Q12HR [facility] Last Admin: 05/10/18 20:39 Dose: 40 mg Heparin Sodium (Porcine) (Heparin) 0 unit IV PER PROTOCOL PRN; Protocol PRN Reason: Low PTT Last Admin: 05/10/18 14:32 Dose: 2,980 unit Heparin Sodium/Sodium Chloride (25,000 unit/ Sodium Chloride) 500 mls @ 20 mls/ hr IV .Q24H [facility]; Protocol Last Admin: 05/10/18 14:53 Dose: 36.7 mls/hr, 36.7 mls/hr Sodium Chloride (Saline 0.9%) 1,000 mls @ 20 mls/hr IV .Q24H [facility] Last Admin: 05/10/18 04:48 Dose: 20 mls/hr Insulin Aspart (Novolog) 0 unit SQ ACHS [facility]; Protocol Last Admin: 05/10/18 20:52 Dose: 5 unit Insulin Human Isoph/Insulin Regular (Humulin 70/30 Vial) 34 unit SQ AC-SUPPER [facility] Last Admin: 05/10/18 17:01 Dose: 34 unit Insulin Human Isoph/Insulin Regular (Humulin 70/30 Vial) 38 unit SQ AC-BRKFST [facility] Isosorbide Mononitrate (Imdur) 30 mg PO QAM [facility] Last Admin: 05/10/18 09:42 Dose: 30 mg Lisinopril (Zestril) 10 mg PO DAILY [facility] Last Admin: 05/10/18 09:42 Dose: 10 mg Metoprolol Tartrate (Lopressor) 25 mg PO BID [facility] Last Admin: 05/10/18 20:38 Dose: 25 mg Multivitamins/Minerals (Ivite) 1 each PO DAILY@1200 [facility] Last Admin: 05/10/18 12:34 Dose: 1 each Naloxone HCl (Narcan) 0.2 mg IV Q2M PRN PRN Reason: Opioid Reversal Trazodone HCl (Desyrel) 150 mg PO HS [facility] Last Admin: 05/10/18 21:28 Dose: 150 mg Objective - Vital Signs Vital signs: Vital Signs Temp 96.6 F L 05/11/18 08:00 Pulse 77 05/11/18 08:00 Resp 16 05/11/18 08:00 BP 114/68 05/11/18 08:00 Pulse Ox 97 05/11/18 08:00 Intake & Output 05/10/18 05/11/18 05/11/18 18:59 06:59 18:59 Intake Total 1586.278 440 240 Output Total 375 800 675 Balance 1211.278 -360 -435 Weight 115.3 kg Intake: Intake, IV Titration 786.278 200 Amount Heparin Sod,Pork in 0.45% 379.278 NaCl 25,000 unit In 0.45 % NaCl 1 500ml.bag @ Titrate 20 mls/hr IV . Q24H [facility] Rx#:[id number] Heparin Sodium,Porcine/ 227 100 D5w Pmx 25,000 unit In 0. 45% NaCl 1 500ml.bag @ Titrate 20 mls/hr IV . Q24H [facility] Rx#:[id number] Sodium Chloride 0.9% 1, 180 100 000 ml @ 20 mls/hr IV . Q24H [facility] Rx#:[id number] Oral 800 240 240 Output: Urine 375 800 675 Other: Voiding Method Urinal Urinal Urinal # Voids 3 - Exam PHYSICAL EXAMINATION: Patient is lying in the bed comfortably, no acute distress, awake alert and oriented.. HEENT: Normocephalic. Neck is supple. Pupils reactive. Nostrils clear. Oral cavity is moist. Ears reveal no drainage. Neck reveals no JVD, carotid bruits, or thyromegaly. CHEST EXAMINATION: Trachea is central. Symmetrical expansion. Bilateral basilar crackles and rhonchi positive. No wheezing. Lung rousseau clear to auscultation and percussion. CARDIAC: Normal S1, S2 with no gallops. No murmurs ABDOMEN: Soft. Bowel sounds normal. No organomegaly. No abdominal bruits. Extremities: 2+ edema. No clubbing or cyanosis Neurologically awake, alert, oriented x3 with well-coordinated movements. No focal deficits noted Skin: No rash or skin lesions. Psychiatric: Coperative. Nonsuicidal Musculoskeletal: No joint swelling or deformity. Normal range of motion. - Labs CBC & Chem 7: 05/11/18 05:31 05/11/18 05:31 Labs: Abnormal Lab Results - Last 24 Hours (Table) 05/10/18 05/10/18 05/10/18 Range/Units 12:52 16:29 20:05 RBC (4.30-5.90) m/uL Hgb (13.0-17.5) gm/dL Hct (39.0-53.0) % Plt Count (150-450) k/uL APTT 43.1 H 69.2 H (22.0-30.0) sec BUN (9-20) mg/dL POC Glucose (mg/dL) 274 H (75-99) mg/dL 05/10/18 05/11/18 05/11/18 Range/Units 20:40 05:31 05:31 RBC 3.91 L (4.30-5.90) m/uL Hgb 12.2 L (13.0-17.5) gm/dL Hct 37.2 L (39.0-53.0) % Plt Count 100 L (150-450) k/uL APTT (22.0-30.0) sec BUN 32 H (9-20) mg/dL POC Glucose (mg/dL) 256 H (75-99) mg/dL 05/11/18 05/11/18 Range/Units 05:43 08:11 RBC (4.30-5.90) m/uL Hgb (13.0-17.5) gm/dL Hct (39.0-53.0) % Plt Count (150-450) k/uL APTT 66.2 H (22.0-30.0) sec BUN (9-20) mg/dL POC Glucose (mg/dL) 112 H (75-99) mg/dL Assessment and Plan Assessment: - Non-ST elevation microinfarction: Continued with IV heparin for 48 hours.. patient is an 87-year-old and he expressed the wishes that he does not want to have any heart catheterization. Cardiology recommends medical management at this time. -Shortness of breath secondary to acute CHF with diastolic dysfunction -Sick sinus syndrome with history of pacemaker placement -Hypertension -Hyperlipidemia - Diabetes type 2. Insulin-dependent. Patient was started back on home dose -Benign prostatic hypertrophy -History of subdural hematoma in the past. Plan: Patient will be continued on IV diuresis. Continue with oxygen therapy and dietary titrate down. Continue the medical management for acute AL. Patient is improving symptomatically. Continue with insulin 70/30 as per home dose along with insulin sliding scale Continue the current management and further recommendations based on the clinical course. Prognosis is guarded with multiple medical problems and comorbid conditions. Time with Patient: Greater than 30
[2018-05-12] MEDS: SODIUM CHLORIDE 0.9% 1,000 ML IV SCH (06:00)
[2018-05-12 06:11] LABS: Glucose,Whole Blood 140 mg/dL (75-99)
[2018-05-12 06:26] LABS: Basophils % (A) 0 %; Eosinophils # (A) 0.1 k/uL (0-0.7); Eosinophils % (A) 2 %; HCT 37.2 % (39.0-53.0); Lymphocytes % (A) 19 %; MCH 30.8 pg (25.0-35.0); MCHC 32.3 g/dL (31.0-37.0); MCV 95.3 fL (80.0-100.0); Mean Platelet Volume 8.5; Monocytes # (A) 0.5 k/uL (0-1.0); Monocytes % (A) 9 %; Neutrophils # (A) 3.6 k/uL (1.3-7.7); Neutrophils % (A) 69 %; Platelet Count 101 k/uL (150-450); WBC 5.3 k/uL (3.8-10.6)
[2018-05-12 06:31] LABS: Calcium 8.4 mg/dL (8.4-10.2)
[2018-05-12] MEDS: INSULIN ASPART 100 UNIT/ML 1 ML 10 ML VIAL SQ SCH ×4 (07:00→22:03)
[2018-05-12] MEDS: INSULIN NPH/REG INSULIN 70/30 300 UNIT/3 ML VIAL SQ SCH ×2 (07:00→17:41)
[2018-05-12] MEDS: HYDROcodone/APAP 7.5-325MG 1 EACH TAB PO PRN (07:06)
[2018-05-12] MEDS: ISOSORBIDE MONONITRATE ER 30 MG TAB.ER.24H PO SCH (08:42)
[2018-05-12] MEDS: ASPIRIN 325 MG TAB PO SCH (08:42)
[2018-05-12] MEDS: VIT A,C & E-LUTEIN-MINERALS 1 EACH TAB PO SCH (08:42)
[2018-05-12] MEDS: CHOLECALCIFEROL 1,000 UNIT TAB PO SCH (08:42)
[2018-05-12] MEDS: FUROSEMIDE 10 MG/ML 4 ML VIAL IV SCH (08:42)
[2018-05-12] MEDS: LISINOPRIL 10 MG TAB PO SCH (08:42)
[2018-05-12] MEDS: SERTRALINE 50 MG TAB PO SCH (08:42)
[2018-05-12] MEDS: METOPROLOL TARTRATE 25 MG TAB PO SCH ×2 (08:42→20:36)
[2018-05-12] MEDS: amLODIPine 5 MG TAB PO SCH (08:42)
[2018-05-12] MEDS: IPRATROPIUM-ALBUTEROL 3 ML NEB INHALATION SCH ×4 (09:00→19:08)
--- NOTE | 2018-05-12 10:05 | P.PN ---
Subjective Progress Note Date: 05/12/18 Principal diagnosis: CHF This is a pleasant 87-year-old male patient who sees Dr. Maria in the office with a past medical history significant for sick sinus syndrome status post permanent pacemaker, hypertension, dyslipidemia, was admitted to the hospital with shortness of breath and was diagnosed was congestive heart failure exacerbation. He also was ruled out for acute non-ST deviation myocardial infarction The echocardiogram revealed normal LV function. On follow-up with the patient today, he is looking better indeterminable shortness of breath. He stated that he has been up and around and the shortness of breath is improved. No chest pain or chest discomfort. No bilateral lower extremities edema. I am going to DC the Lasix IV and start the patient on Lasix by mouth. Anticipate discharge in the next 24 hours. Objective - Vital Signs Vital signs: Vital Signs Temp 97.6 F 05/12/18 08:47 Pulse 80 05/12/18 09:11 Resp 18 05/12/18 08:47 BP 121/66 05/12/18 08:47 Pulse Ox 95 05/12/18 08:47 Intake & Output 05/11/18 05/12/18 05/12/18 18:59 06:59 18:59 Intake Total 700 490 240 Output Total 1075 1400 Balance -375 -910 240 Weight 114.7 kg Intake: IV 10 0.9 10 Oral 700 480 240 Output: Urine 1075 1400 Other: Voiding Method Urinal Urinal Urinal # Voids 1 5 - Constitutional General appearance: Present: no acute distress - Respiratory Respiratory: bilateral: diminished - Cardiovascular Heart sounds: normal: S1, S2 - Labs CBC & Chem 7: 05/12/18 05:29 05/12/18 05:29 Labs: Abnormal Lab Results - Last 24 Hours (Table) 05/09/18 05/11/18 05/11/18 Range/Units 09:09 16:17 21:20 RBC (4.30-5.90) m/uL Hgb (13.0-17.5) gm/dL Hct (39.0-53.0) % Plt Count (150-450) k/uL BUN (9-20) mg/dL Glucose (74-99) mg/dL POC Glucose (mg/dL) 146 H 169 H (75-99) mg/dL Hemoglobin A1c 6.7 H (4.0-6.0) % 05/12/18 05/12/18 05/12/18 Range/Units 05:29 05:29 06:06 RBC 3.90 L (4.30-5.90) m/uL Hgb 12.0 L (13.0-17.5) gm/dL Hct 37.2 L (39.0-53.0) % Plt Count 101 L (150-450) k/uL BUN 28 H (9-20) mg/dL Glucose 118 H (74-99) mg/dL POC Glucose (mg/dL) 140 H (75-99) mg/dL Hemoglobin A1c (4.0-6.0) % Assessment and Plan Assessment: Assessment #1 congestive heart failure secondary to diastolic dysfunction, acute on chronic #2 sick sinus syndrome and status post permanent pacemaker implantation #3 hypertension #4 dyslipidemia Plan #1 DC Lasix IV and start the patient on Lasix by mouth #2 continue the medical treatment only 40 acute non-STEMI in the absence of any chest pain #3 at this discharge in the next 24 hours
--- NOTE | 2018-05-12 12:01 | CDI ---
Last Revision, October 2017 Documentation Clarification Form Date: 05/12/2018 11:46:00 AM From: Tiarra VelezWarrenSG, CCDS Admit Date: 05/09/2018 2:13:00 AM Patient Name: Milton Ty Visit Number: [id number] Discharge Date: ATTENTION: The Clinical Documentation Specialists (CDI) and [facility] Coding Staff appreciate your assistance in clarifying documentation. Please respond to the clarification below the line at the bottom and electronically sign. The CDI & [facility] Coding staff will review the response and follow-up if needed. Please note: Queries are made part of the Legal Health Record. If you have any questions, please contact the author of this message via ITS. Dr. Eris Matson: 87 yo male, admitted with chest pressure like sensation, minimally elevated troponins, SOB, elevated JVD, pulmonary edema & bilateral pleural effusions. Diagnosed with NSTEMI & started on IV heparin, no heart catheterization per patient's wishes. Also diagnosed with acute on chronic diastolic congestive heart failure. Per the Cardiology notes on 05/11 & 05/12, NSTEMI is ruled out. Patient history/risk factors: Known cardiac history: Sick sinus syndrome with pacemaker, Hypertension, Hyperlipidemia and DM II. Clinical Indicators: VSS Lab findings: D Dimer 1.48, Glucose 308, Troponin: 0.350, 0.966 Radiology findings: CXR: Pulmonary interstitial fibrosis, probably mild CHF. CT Chest: Bilateral pleural effusions, no PE, AAA. Treatment: Initially started on IV Heparin, Albuterol INH, Insulin sq. IV Lasix , O2 3Lnc. Consults: Pulmonary & Cardiology In your professional opinion, can you please clarify & document accordingly: NSTEMI ruled in NSTEMI ruled out Unable to determine Please continue to document in your progress notes and discharge summary in order to capture severity of illness and risk of mortality. Include clinical findings that support your diagnosis. NSTEMI ruled in MTDD
--- NOTE | 2018-05-12 14:01 | P.PN ---
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 He admitted with a diagnosis of non-ST segment elevation myocardial infarction and mild fluid overload. The patient is doing a lot better. Chest x-rays improved. The patient responded very nicely to Lasix. The patient otherwise is doing well. He would like to be treated medically for his cardiac disease. Not interested in a cardiac catheterization at this time. He has a history of diabetes hyperlipidemia obesity hypertension BPH and subdural hematoma requiring evacuation 2. He is also status post pacemaker insertion. Overall the patient's feeling better today. Chest x-ray is improved. White count 6.1 hemoglobin 12.2 hematocrit 37.2 platelet count is 100,000. PTT 66.2 sodium potassium chloride CO2 all normal BUN and creatinine were 32 and 1.20. On 05/12/2018 patient seen in follow-up on selective care unit. Distress, denies any dyspnea or chest pain. Edema in his bilateral lower extremities is improving, is maintaining negative fluid balance, he is in -1100 ML her last 24 hours, his weight is down by 0.8 kg in the last 24 hours. Yesterday his chest X-rays chest x-ray was reviewed and showed mild cardiomegaly, improved volume status, and small bilateral pleural effusions. His labs were reviewed, no leukocytosis, electrolytes and renal profile are essentially within normal limits. Patient's Lasix has been transitioned to oral Lasix. From pulmonary standpoint patient remains stable, could be considered for discharge home in the next 24 hours. Objective - Vital Signs Vital signs: Vital Signs Temp 97.7 F 05/12/18 11:42 Pulse 84 05/12/18 12:15 Resp 18 05/12/18 11:42 BP 105/57 05/12/18 11:42 Pulse Ox 94 L 05/12/18 11:42 Intake & Output 05/11/18 05/12/18 05/12/18 18:59 06:59 18:59 Intake Total 700 490 240 Output Total 1075 1400 Balance -375 -910 240 Weight 114.7 kg Intake: IV 10 0.9 10 Oral 700 480 240 Output: Urine 1075 1400 Other: Voiding Method Urinal Urinal Urinal # Voids 1 5 - Exam No acute distress, oriented 3. HEENT examination is grossly unremarkable. Mucous membranes are moist. No oral lesions. Neck supple. Full range of motion. No adenopathy thyromegaly or neck vein distention. Cardiovascular examination reveals regular rhythm rate. S1-S2 normal. No S3 or S4. No discernible murmur noted. Lungs reveal minimal bibasilar crackles. Breath sounds equal bilaterally. No rhonchi or wheezes. Abdomen soft bowel sounds are heard. No masses or tenderness. Extremities are intact. No cyanosis clubbing or significant edema. Skin is without rash or lesion. Neurologic examination is brief but nonfocal. - Labs CBC & Chem 7: 05/12/18 05:29 05/12/18 05:29 Labs: Abnormal Lab Results - Last 24 Hours (Table) 05/09/18 05/11/18 05/11/18 Range/Units 09:09 16:17 21:20 RBC (4.30-5.90) m/uL Hgb (13.0-17.5) gm/dL Hct (39.0-53.0) % Plt Count (150-450) k/uL BUN (9-20) mg/dL Glucose (74-99) mg/dL POC Glucose (mg/dL) 146 H 169 H (75-99) mg/dL Hemoglobin A1c 6.7 H (4.0-6.0) % 05/12/18 05/12/18 05/12/18 Range/Units 05:29 05:29 06:06 RBC 3.90 L (4.30-5.90) m/uL Hgb 12.0 L (13.0-17.5) gm/dL Hct 37.2 L (39.0-53.0) % Plt Count 101 L (150-450) k/uL BUN 28 H (9-20) mg/dL Glucose 118 H (74-99) mg/dL POC Glucose (mg/dL) 140 H (75-99) mg/dL Hemoglobin A1c (4.0-6.0) % Assessment and Plan Plan: Assessment: Non-ST segment elevation myocardial infarction Mild to moderate CHF, improved. History of diabetes mellitus History of hyperlipidemia History of hypertension History of BPH Status post pacemaker insertion Previous history of subdural hematoma, status post evacuation area wrapped chronic back and hip pain Multiple other medical problems and comorbidities Plan: Continue current plan of treatment, continue oral diuretics, nebulized bronchodilators. Increase activity as tolerated. Patient is improving, breathing easier, no chest pain. Her stable, no acute events overnight. Patient can be considered for discharge home in the next 24 hours I performed a history & physical examination of the patient and discussed their management with my nurse practitioner, Angeles Clark. I reviewed the nurse practitioner's note and agree with the documented findings and plan of care. Lung sounds are positive for a few bibasilar crackles. The findings and the impression was discussed with the patient. I attest to the documentation by the nurse practitioner. Time with Patient: Less than 30
[2018-05-12] MEDS: FUROSEMIDE 40 MG TAB PO SCH (16:46)
[2018-05-12 17:16] LABS: Glucose,Whole Blood 217 mg/dL (75-99)
[2018-05-12] MEDS: ATORVASTATIN 20 MG TAB PO SCH (20:36)
[2018-05-12] MEDS: DOXAZOSIN 4 MG TAB PO SCH (20:36)
[2018-05-12] MEDS: FINASTERIDE 5 MG TAB PO SCH (20:36)
[2018-05-12 20:57] LABS: Glucose,Whole Blood 141 mg/dL (75-99)
[2018-05-12] MEDS: traZODone HCL 50 MG TAB PO SCH (22:03)
[2018-05-12] MEDS: ALPRAZolam 0.5 MG TAB PO PRN (22:03)
--- NOTE | 2018-05-12 22:49 | P.PN ---
Subjective Progress Note Date: 05/12/18 Principal diagnosis: Acute CHF exacerbation. Diastolic dysfunction 87-year-old pleasant gentleman came in with complaints of chest pressure-like sensation which started yesterday patient has minimally elevated troponin. Patient was also having shortness of breath. Patient does have elevated JVD does have pulmonary edema bilateral pleural effusions. Patient is doing much better with IV Lasix now patient does take Lasix but never had any history of congestive heart failure in the past patient feels better after the diuretic therapy. Patient chest pressure like sensation relieved with the dose of aspirin and the nitroglycerin and patient barely has any pain at this point of time patient has moderate to severe chest pressure yesterday which lasted until he took sublingual nitroglycerin his pain is nonexertional although started after eating. 05/10/2018 Patient's breathing status is improving with IV diuresis. Currently saturating well on nasal cannula. No complaints of chest pain or shortness of breath. Patient is currently on 6 L high flow nasal cannula. 2-D echocardiogram showed ejection fraction 50-50%. Patient is currently on IV diuresis with 40 mg of Lasix every 12. Patient will be continued on IV heparin for 48 hours. Cardiology and pulmonary is following. 05/11/2018 Patient's breathing status is continues to improve. Anticipate saturating on nausea cannula at 4 L. Patient is being continued on IV diuresis with Lasix. No complaints of chest pain. No nausea vomiting or abdominal pain. No other acute overnight issues. 05/12/2018 Patient's breathing status is much improved now. Able to saturating well on room air. Lasix changed to by mouth. Overall improving. Continue the current management and anticipate discharge in next 24 hours All other review of systems negative except the above Active Medications Objective - Vital Signs Vital signs: Vital Signs Temp 98.5 F 05/12/18 19:50 Pulse 93 05/12/18 19:50 Resp 18 05/12/18 19:50 BP 139/74 05/12/18 19:50 Pulse Ox 96 05/12/18 19:50 Intake & Output 05/12/18 05/12/18 05/13/18 06:59 18:59 06:59 Intake Total 490 720 Output Total 1400 750 650 Balance -910 -30 -650 Weight 114.7 kg Intake: IV 10 0.9 10 Oral 480 720 Output: Urine 1400 750 650 Other: Voiding Method Urinal Urinal Urinal # Voids 5 - Exam PHYSICAL EXAMINATION: Patient is lying in the bed comfortably, no acute distress, awake alert and oriented.. HEENT: Normocephalic. Neck is supple. Pupils reactive. Nostrils clear. Oral cavity is moist. Ears reveal no drainage. Neck reveals no JVD, carotid bruits, or thyromegaly. CHEST EXAMINATION: Trachea is central. Symmetrical expansion. Bilateral air entry improved. No wheezing. Lung rousseau clear to auscultation and percussion. CARDIAC: Normal S1, S2 with no gallops. No murmurs ABDOMEN: Soft. Bowel sounds normal. No organomegaly. No abdominal bruits. Extremities: 1+ edema. No clubbing or cyanosis Neurologically awake, alert, oriented x3 with well-coordinated movements. No focal deficits noted Skin: No rash or skin lesions. Psychiatric: Coperative. Nonsuicidal Musculoskeletal: No joint swelling or deformity. Normal range of motion. - Labs CBC & Chem 7: 05/12/18 05:29 05/12/18 05:29 Labs: Abnormal Lab Results - Last 24 Hours (Table) 05/09/18 05/12/18 05/12/18 Range/Units 09:09 05:29 05:29 RBC 3.90 L (4.30-5.90) m/uL Hgb 12.0 L (13.0-17.5) gm/dL Hct 37.2 L (39.0-53.0) % Plt Count 101 L (150-450) k/uL BUN 28 H (9-20) mg/dL Glucose 118 H (74-99) mg/dL POC Glucose (mg/dL) (75-99) mg/dL Hemoglobin A1c 6.7 H (4.0-6.0) % 05/12/18 05/12/18 05/12/18 Range/Units 06:06 17:06 20:56 RBC (4.30-5.90) m/uL Hgb (13.0-17.5) gm/dL Hct (39.0-53.0) % Plt Count (150-450) k/uL BUN (9-20) mg/dL Glucose (74-99) mg/dL POC Glucose (mg/dL) 140 H 217 H 141 H (75-99) mg/dL Hemoglobin A1c (4.0-6.0) % Assessment and Plan Assessment: - Non-ST elevation microinfarction: Continued with IV heparin for 48 hours.. patient is an 87-year-old and he expressed the wishes that he does not want to have any heart catheterization. Cardiology recommends medical management at this time. -Shortness of breath secondary to acute CHF with diastolic dysfunction -Sick sinus syndrome with history of pacemaker placement -Hypertension -Hyperlipidemia - Diabetes type 2. Insulin-dependent. Patient was started back on home dose -Benign prostatic hypertrophy -History of subdural hematoma in the past. Plan: Patient was continued on IV diuresis. Currently Lasix by mouth. Saturating well on room air. Continue the medical management for acute [place]. Discontinue heparin drip. Patient is improving symptomatically. Continue with insulin 70/ 30 as per home dose along with insulin sliding scale Continue the current management and further recommendations based on the clinical course. Prognosis is guarded with multiple medical problems and comorbid conditions. Time with Patient: Greater than 30
[2018-05-13 06:07] LABS: Glucose,Whole Blood 104 mg/dL (75-99)
[2018-05-13] MEDS: INSULIN ASPART 100 UNIT/ML 1 ML 10 ML VIAL SQ SCH ×2 (06:24→11:54)
[2018-05-13] MEDS: SODIUM CHLORIDE 0.9% 1,000 ML IV SCH (06:24)
[2018-05-13] MEDS: HYDROcodone/APAP 7.5-325MG 1 EACH TAB PO PRN (06:37)
[2018-05-13] MEDS: INSULIN NPH/REG INSULIN 70/30 300 UNIT/3 ML VIAL SQ SCH (07:05)
[2018-05-13] MEDS: ISOSORBIDE MONONITRATE ER 30 MG TAB.ER.24H PO SCH (08:36)
[2018-05-13] MEDS: SERTRALINE 50 MG TAB PO SCH (08:36)
[2018-05-13] MEDS: METOPROLOL TARTRATE 25 MG TAB PO SCH (08:36)
[2018-05-13] MEDS: ASPIRIN 325 MG TAB PO SCH (08:37)
[2018-05-13] MEDS: VIT A,C & E-LUTEIN-MINERALS 1 EACH TAB PO SCH (08:37)
[2018-05-13] MEDS: amLODIPine 5 MG TAB PO SCH (08:37)
[2018-05-13] MEDS: LISINOPRIL 10 MG TAB PO SCH (08:37)
[2018-05-13] MEDS: CHOLECALCIFEROL 1,000 UNIT TAB PO SCH (08:37)
[2018-05-13] MEDS: FUROSEMIDE 40 MG TAB PO SCH (08:37)
[2018-05-13] MEDS: IPRATROPIUM-ALBUTEROL 3 ML NEB INHALATION SCH ×2 (08:51→11:55)
--- NOTE | 2018-05-13 11:28 | P.PN ---
Subjective Progress Note Date: 05/13/18 Principal diagnosis: Acute non-ST segment elevation myocardial infarction Pulmonary consult dated 05/09/2018 87-year-old male who I see in the office. He has a history of diabetes hyperlipidemia hypertension and a previous history of subarachnoid hemorrhage. The patient apparently comes into the emergency room complaining of shortness of breath and chest pressure/pain. He thought the chest pain was indigestion. The patient down states that more recently he's been very stressed. He apparently was in [place] for a family member who was ill. They service tomorrow had to clean it out. He's been working very hard along with his who is 89 or 93 years of age. His shortness of breath got so bad that he decided to come into the emergency room where he was discovered to have pulmonary edema/heart failure as well as brought probably a non-ST segment elevation myocardial infarction. The patient is feeling a bit better today. He was given some diuretics in the emergency department. He's had an EKG blood work and an echocardiogram. He does have a history of diabetes hyperlipidemia and hypertension. He also has a history of benign prostatic hypertrophy as well as subdural hematoma with previous evacuation. In addition, he's got all sorts of aches and pains hip pain deep pain, etc. Feeling better currently. He is status post pacemaker as well. Progress note dated 05/10/2018 Patient is seen again today in follow-up on the selective care unit. He is awake and alert in no acute distress. He does feel overall weak and fatigued. He denies any worsening shortness of breath, cough or congestion. He is continuing to require 6 L high flow nasal cannula to maintain O2 saturations in the 90s. No chest pain or palpitations. Echocardiogram revealed left ventricular systolic function with ejection fraction 50-55%. He remains on Lasix 40 mg IV every 12 hours. He is diuresing well. Currently on IV heparin. Cardiology is planning to treat the patient medically. Progress note dated 05/11/2018 This is an 87-year-old male well-known to me. He admitted with a diagnosis of non-ST segment elevation myocardial infarction and mild fluid overload. The patient is doing a lot better. Chest x-rays improved. The patient responded very nicely to Lasix. The patient otherwise is doing well. He would like to be treated medically for his cardiac disease. Not interested in a cardiac catheterization at this time. He has a history of diabetes hyperlipidemia obesity hypertension BPH and subdural hematoma requiring evacuation 2. He is also status post pacemaker insertion. Overall the patient's feeling better today. Chest x-ray is improved. White count 6.1 hemoglobin 12.2 hematocrit 37.2 platelet count is 100,000. PTT 66.2 sodium potassium chloride CO2 all normal BUN and creatinine were 32 and 1.20. On 05/12/2018 patient seen in follow-up on selective care unit. Distress, denies any dyspnea or chest pain. Edema in his bilateral lower extremities is improving, is maintaining negative fluid balance, he is in -1100 ML her last 24 hours, his weight is down by 0.8 kg in the last 24 hours. Yesterday his chest X-rays chest x-ray was reviewed and showed mild cardiomegaly, improved volume status, and small bilateral pleural effusions. His labs were reviewed, no leukocytosis, electrolytes and renal profile are essentially within normal limits. Patient's Lasix has been transitioned to oral Lasix. From pulmonary standpoint patient remains stable, could be considered for discharge home in the next 24 hours. The patient is seen again today 05/13/2018 in follow-up on the selective care unit. He is awake and alert in no acute distress. He's been up ambulating in the room with assistance. He is down another kilogram. He is maintaining good O2 saturations in the upper 90s on room air. He's been afebrile. Hemodynamically stable. He is quite anxious to go home. Objective - Vital Signs Vital signs: Vital Signs Temp 97.5 F L 05/13/18 08:40 Pulse 84 05/13/18 09:04 Resp 18 05/13/18 08:40 BP 123/67 05/13/18 08:40 Pulse Ox 98 05/13/18 08:40 Intake & Output 05/12/18 05/13/18 05/13/18 18:59 06:59 18:59 Intake Total 720 490 Output Total 750 850 500 Balance -30 -500 Weight 113.7 kg Intake: IV 10 0.9 10 Oral 720 480 Output: Urine 750 850 500 Other: Voiding Method Urinal Urinal Urinal # Voids 4 - Exam No acute distress, oriented 3. Nasal O2 in place. HEENT examination is grossly unremarkable. Mucous membranes are moist. No oral lesions. Neck supple. Full range of motion. No adenopathy thyromegaly or neck vein distention. Cardiovascular examination reveals regular rhythm rate. S1-S2 normal. No S3 or S4. No discernible murmur noted. Lungs reveal bibasilar crackles. Breath sounds equal. No wheezes or rhonchi.. Abdomen soft bowel sounds are heard. No masses or tenderness. Extremities very minimal edema. No cyanosis or clubbing appreciated. Skin is without rash or lesion. Neurologic examination is brief but nonfocal. - Labs CBC & Chem 7: 05/12/18 05:29 05/12/18 05:29 Labs: Abnormal Lab Results - Last 24 Hours (Table) 05/12/18 05/12/18 05/13/18 Range/Units 17:06 20:56 06:06 POC Glucose (mg/dL) 217 H 141 H 104 H (75-99) mg/dL Assessment and Plan Assessment: Assessment Non-ST segment elevation myocardial infarction Acute exacerbation of diastolic congestive heart failure Acute hypoxic respiratory failure secondary to above. History of diabetes mellitus History of hyperlipidemia History of hypertension History of BPH Status post pacemaker insertion Previous history of subdural hematoma, status post evacuation area wrapped chronic back and hip pain Multiple other medical problems and comorbidities And The patient was seen and evaluated by Dr. Abraham. He is improved today as compared to yesterday. He is stable for discharge from the pulmonary standpoint. Continue current medications. He will follow up with Dr. Oakley in our office in 1 week's time. He and his are both encouraged to call sooner however with any recurrence of symptoms or other questions or concerns. I, the cosigning physician, performed a history & physical examination of the patient. Lungs sounds with crackles in the bilateral posterior bases. Maintaining good O2 saturations in the 90s on room air. I discussed the assessment and plan of care with my nurse practitioner, Eva Kirk. I attest to the above note as dictated by her.
[2018-05-13 11:44] LABS: Glucose,Whole Blood 108 mg/dL (75-99)
--- NOTE | 2018-05-13 12:19 | P.PN ---
Subjective Progress Note Date: 05/13/18 Principal diagnosis: CHF This is a pleasant 87-year-old male patient who sees Dr. Maria in the office with a past medical history significant for sick sinus syndrome status post permanent pacemaker, hypertension, dyslipidemia, was admitted to the hospital with shortness of breath and was diagnosed was congestive heart failure exacerbation. He also was ruled out for acute non-ST deviation myocardial infarction The echocardiogram revealed normal LV function. On follow-up with the patient today, he is looking better in term shortness of breath. He stated that he has been up and around and the shortness of breath is improved. No chest pain or chest discomfort. No bilateral lower extremities edema. From the cardiovascular standpoint of view, the patient can be discharged home. Objective - Vital Signs Vital signs: Vital Signs Temp 97.5 F L 05/13/18 08:40 Pulse 80 05/13/18 12:05 Resp 18 05/13/18 08:40 BP 123/67 05/13/18 08:40 Pulse Ox 98 05/13/18 08:40 Intake & Output 05/12/18 05/13/18 05/13/18 18:59 06:59 18:59 Intake Total 720 490 240 Output Total 750 850 500 Balance -30 -360 -260 Weight 113.7 kg Intake: IV 10 0.9 10 Oral 720 480 240 Output: Urine 750 850 500 Other: Voiding Method Urinal Urinal Urinal # Voids 4 - Constitutional General appearance: Present: no acute distress - Respiratory Respiratory: bilateral: diminished - Cardiovascular Heart sounds: normal: S1, S2 - Labs CBC & Chem 7: 05/12/18 05:29 05/12/18 05:29 Labs: Abnormal Lab Results - Last 24 Hours (Table) 05/12/18 05/12/18 05/13/18 Range/Units 17:06 20:56 06:06 POC Glucose (mg/dL) 217 H 141 H 104 H (75-99) mg/dL 05/13/18 Range/Units 11:19 POC Glucose (mg/dL) 108 H (75-99) mg/dL Assessment and Plan Assessment: Assessment #1 congestive heart failure secondary to diastolic dysfunction, acute on chronic #2 sick sinus syndrome and status post permanent pacemaker implantation #3 hypertension #4 dyslipidemia Plan #1 continue the current dose of Lasix by mouth #2 the patient can be discharged home.
[2018-05-13 12:21] VITALS: BP 116/59; PULSE 81; TEMP 97.8
== END 2018-05-13 16:05 | disposition home or self-care (01) | DRG 280 ==
LOC: EC 21:56 → 6SEL 05-09 02:13
PROVIDERS: ADMIT Hospitalist; ATTEND Hospitalist
DX: I21.4 Non-ST elevation (NSTEMI) myocardial infarction (principal); I50.33 Acute on chronic diastolic (congestive) heart failure; J96.01 Acute respiratory failure with hypoxia; I11.0 Hypertensive heart disease with heart failure; E11.40 Type 2 diabetes mellitus with diabetic neuropathy, unspecified; J84.10 Pulmonary fibrosis, unspecified; I71.2 Thoracic aortic aneurysm, without rupture; I45.10 Unspecified right bundle-branch block; I44.0 Atrioventricular block, first degree; N40.0 Benign prostatic hyperplasia without lower urinary tract symptoms; E78.5 Hyperlipidemia, unspecified; F32.9 Major depressive disorder, single episode, unspecified; F41.9 Anxiety disorder, unspecified; M19.91 Primary osteoarthritis, unspecified site; E66.9 Obesity, unspecified; Z68.37 Body mass index [BMI] 37.0-37.9, adult; Z79.4 Long term (current) use of insulin; Z79.899 Other long term (current) drug therapy; Z86.79 Personal history of other diseases of the circulatory system; Z95.0 Presence of cardiac pacemaker; Z87.81 Personal history of (healed) traumatic fracture; Z96.641 Presence of right artificial hip joint
CPT/HCPCS: 36415; 71045; 71046; 71275; 80048; 80053; 82550; 82553; 83036; 83735; 83880; 84484; 85025; 85379; 85610; 85730; 93005; 93306; 94640; 94644; 94760; 96365; 96375; 99285

== ENCOUNTER 2018-05-15 11:40 | Observation (INO) | payer MEDICARE, BC ==
[2018-05-15] MEDS ORDERED: SODIUM CHLORIDE 0.9% 1,000 ML IV STA (12:05)
[2018-05-15 12:25] LABS: Basophils % (A) 0 %; Eosinophils # (A) 0.1 k/uL (0-0.7); Eosinophils % (A) 1 %; HCT 39.5 % (39.0-53.0); HGB 13.3 gm/dL (13.0-17.5); Lymphocytes # (A) 1.1 k/uL (1.0-4.8); Lymphocytes % (A) 18 %; MCHC 33.8 g/dL (31.0-37.0); MCV 94.7 fL (80.0-100.0); Mean Platelet Volume 8.7; Monocytes # (A) 0.5 k/uL (0-1.0); Monocytes % (A) 7 %; Neutrophils # (A) 4.7 k/uL (1.3-7.7); Neutrophils % (A) 73 %; Platelet Count 106 k/uL (150-450); RBC 4.17 m/uL (4.30-5.90); RDW 13.7 % (11.5-15.5); WBC 6.5 k/uL (3.8-10.6)
[2018-05-15 12:32] LABS: Calcium 8.7 mg/dL (8.4-10.2); Potassium 4.1 mmol/L (3.5-5.1); Total Bilirubin 0.7 mg/dL (0.2-1.3); Total Protein 6.2 g/dL (6.3-8.2)
[2018-05-15 12:33] LABS: INR 1.1 (<1.2); Prothrombin Time 10.7 sec (9.0-12.0)
[2018-05-15 12:34] LABS: Partial Thromboplastin Time 26.4 sec (22.0-30.0)
--- NOTE | 2018-05-15 12:54 | CT ---
EXAMINATION TYPE: CT brain wo con DATE OF EXAM: 05/15/2018 COMPARISON: None HISTORY: Left sided weakness and facial droop from this morning. Previous [place] last Saturday. CT DLP: 1005.7 mGycm Automated exposure control for dose reduction was used. Helical acquisition through the brain. FINDINGS: Cerebral vascular calcifications are present. Atrophy is likely age-related. Periventricular white ma tter low-attenuation is present. There is no evident hemorrhage or hydrocephalus. Postop change noted to the calvarium. Some mild prominence of extra-axial fluid on the right as compared to left may be chronic, comparison with old films may be of benefit. The orbits show a symmetric appearance. Mild mu cosal disease present within the maxillary and sphenoid sinus, mastoids are remarkable for some mild inflammatory change in the right. Suspect low-attenuation within the cerebral peduncles, possibly aimee s. IMPRESSION: POSTOP CHANGES. CHRONIC SMALL VESSEL ISCHEMIA, AGE RELATED ATROPHY. Possible old subdural hematoma an d additional findings above.
[2018-05-15 12:59] LABS: Troponin I 0.811 ng/mL (0.000-0.034)
--- NOTE | 2018-05-15 13:00 | XR ---
EXAMINATION TYPE: XR chest 2V DATE OF EXAM: 05/15/2018 COMPARISON: Chest xray 05/11/2018 HISTORY: Altered mental status TECHNIQUE: Frontal and lateral views of the chest are obtained. FINDINGS: Patient is rotated. There may be some improvement in aeration. Generator is in the left pe ctoral region. There are leads in the right atrium and ventricle. Heart size is stable and enlarged. No evident pneumothorax. Patchy basilar density obscures the left hemidiaphragm. Increased AP diamete r of the chest may be indicative of COPD. There are coronary artery calcifications. IMPRESSION: Probable basilar atelectasis, difficult to exclude small effusion. Suspect some improvem ent in aeration.
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
[2018-05-15] MEDS ORDERED: ONDANSETRON 4 MG/2 ML VIAL IVP PRN (14:25)
[2018-05-15] MEDS ORDERED: ACETAMINOPHEN TAB 325 MG TAB PO PRN (14:25)
[2018-05-15] MEDS ORDERED: NALOXONE 0.4 MG/ML 1 ML VIAL IV PRN (14:25)
[2018-05-15] MEDS ORDERED: HYDROcodone/APAP 7.5-325MG 1 EACH TAB PO PRN (14:31)
[2018-05-15 16:37] LABS: Glucose,Whole Blood 228 mg/dL (75-99)
[2018-05-15] MEDS: FUROSEMIDE 40 MG TAB PO SCH (16:58)
[2018-05-15] MEDS ORDERED: ALPRAZolam 0.5 MG TAB PO PRN (17:09)
[2018-05-15] MEDS: INSULIN NPH/REG INSULIN 70/30 300 UNIT/3 ML VIAL SQ SCH (17:21)
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
[2018-05-15] MEDS ORDERED: FINASTERIDE 5 MG TAB PO SCH (21:00)
[2018-05-15] MEDS ORDERED: DOXAZOSIN 4 MG TAB PO SCH (21:00)
[2018-05-15] MEDS ORDERED: traZODone HCL 100 MG TAB PO SCH (21:00)
[2018-05-15 21:01] LABS: Glucose,Whole Blood 53 mg/dL (75-99)
[2018-05-15] MEDS: METOPROLOL TARTRATE 25 MG TAB PO SCH (21:16)
[2018-05-15 21:25] LABS: Glucose,Whole Blood 73 mg/dL (75-99)
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
[2018-05-16 01:34] LABS: Glucose,Whole Blood 94 mg/dL (75-99)
[2018-05-16 05:58] LABS: Glucose,Whole Blood 104 mg/dL (75-99)
[2018-05-16] MEDS ORDERED: INSULIN NPH/REG INSULIN 70/30 300 UNIT/3 ML VIAL SQ SCH (07:30)
[2018-05-16] MEDS: METOPROLOL TARTRATE 25 MG TAB PO SCH (07:59)
[2018-05-16] MEDS: FUROSEMIDE 40 MG TAB PO SCH (07:59)
[2018-05-16 08:03] VITALS: RESP 16; TEMP 97.3
[2018-05-16] MEDS ORDERED: CHOLECALCIFEROL 1,000 UNIT TAB PO SCH (09:00)
[2018-05-16] MEDS ORDERED: ATORVASTATIN 20 MG TAB PO SCH (09:00)
[2018-05-16] MEDS ORDERED: ASPIRIN 81 MG PO SCH (09:00)
[2018-05-16] MEDS ORDERED: SERTRALINE 50 MG TAB PO SCH (09:00)
[2018-05-16] MEDS ORDERED: amLODIPine 5 MG TAB PO SCH (09:00)
[2018-05-16] MEDS ORDERED: LISINOPRIL 10 MG TAB PO SCH (09:00)
[2018-05-16] MEDS ORDERED: ISOSORBIDE MONONITRATE ER 30 MG TAB.ER.24H PO SCH (09:00)
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
--- NOTE | 2018-05-16 11:06 | US ---
EXAMINATION TYPE: US carotid duplex BILAT DATE OF EXAM: 05/16/2018 COMPARISON: NONE CLINICAL HISTORY: TIA. EXAM MEASUREMENTS: RIGHT: Peak Systolic Velocity (PSV) cm/sec ----- Right CCA: 58.5 ----- Right ICA: 126.8 ----- Right ECA: 117.4 ICA/CCA ratio: 2.2 RIGHT: End Diastole cm/sec ----- Right CCA: 5.9 ----- Right ICA: 29.4 ----- Right ECA: 0.0 LEFT: Peak Systolic Velocity (PSV) cm/sec ----- Left CCA: 63.9 ----- Left ICA: 56.5 ----- Left ECA: 71.0 ICA/CCA ratio: 0.9 LEFT: End Diastole cm/sec ----- Left CCA: 7.9 ----- Left ICA: 12.8 ----- Left ECA: 0.0 VERTEBRALS (direction of flow): Right Vertebral: Antegrade Left Vertebral: Antegrade Rhythm: Normal Moderate atherosclerotic changes with slight velocity increase seen on right. No significant velocity elevation seen on left. IMPRESSION: 1. Right internal carotid artery demonstrates approximately 50% stenosis with moderate calcific ather omatous changes. No sonographic evidence of hemodynamically significant stenosis on the left. Criteria for Assigning % of Stenosis / Diameter reduction (Estimation based on the indirect measurements of the internal carotid artery velocities (ICA PSV). 1. Normal (no stenosis)=ICA PSV < 125 cm/s: ratio < 2.0: ICA EDV<40 cm/s. 2. Less than 50% stenosis=ICA PSV < 125 cm/s: ratio < 2.0: ICA EDV<40 cm/s. 3. 50 to 69% stenosis=ICA PSV of 125 to 230 cm/s: ration 2.0 ? 4.0: ICA EDV 40-100 cm/s. 4. Greater than 70% stenosis to near occlusion= ICA PSV > 230 cm/s: ratio > 4.0: ICA EDV > 100 cm/s. 5. Near occlusion= ICA PSV velocities may be low or undetectable: variable ratio and ICA EDV. 6. Total occlusion=unable to detect flow.
[2018-05-16 11:42] LABS: Glucose,Whole Blood 94 mg/dL (75-99)
[2018-05-16 11:47] VITALS: BP 109/58; PULSE 71
[2018-05-16] MEDS ORDERED: VIT A,C & E-LUTEIN-MINERALS 1 EACH TAB PO SCH (12:00)
[2018-05-16 16:36] LABS: Glucose,Whole Blood 135 mg/dL (75-99)
[2018-05-16] MEDS: INSULIN NPH/REG INSULIN 70/30 300 UNIT/3 ML VIAL SQ SCH (17:28)
--- NOTE | 2018-05-16 23:42 | P.DS ---
Providers Date of admission: 05/15/18 14:25 Expected date of discharge: 05/16/18 Attending physician: Elli Novak Consults: 05/15/18 14:25 Consult Physician Stat Consulting Provider: Nicole Herman Consult Reason/Comments: L hand weakness Do you want consulting provider notified?: Yes Consult Physician Stat Consulting Provider: Ivan Madsen Consult Reason/Comments: Elevated troponin Do you want consulting provider notified?: Yes Primary care physician: Samir Oakley [facility] Course: Discharge diagnosis TIA with facial droop, slurred speech and left upper extremity weakness. Resolved now History of subdural hematoma Recent non-ST elevated [place]. Patient opted for conservative management Recent acute CHF with diastolic dysfunction 6 sinus syndrome status post pacemaker placement history Hypertension Hyperlipidemia Diabetes type 2 insulin-dependent BPH DVT prophylaxis Hospital course. Patient is a 87-year-old male with a known history of hypertension, hyperlipidemia, osteoarthritis and history of subdural hematoma 3, diabetic neuropathy BPH who was recently discharged from the hospital 2 days ago and was treated for acute CHF exacerbation and non-ST elevated [place]. Patient presented today with complaints of left hand weakness and slurred speech currently resolving now. Patient was drinking coffee this morning and felt suddenly left hand very weak and could not hold his coffee. Patient's family members noted that he has significant left-sided facial droop and slurring of speech last about 2 minutes. Otherwise patient is currently symptomatically resolved. Denied any headache or dizziness or lightheadedness. No chest pain or shortness of breath currently. Blood pressure is stable otherwise denied any blurry vision. No chest pain or shortness of breath. No shaking movements noted. No urinary frequency or urgency noted. No dysuria. No fever no chills. Patient was recently treated for non-ST elevated [place] and opted for conservative management. Patient was diuresing well with improvement in symptoms of shortness of breath and was sent home on 05/13/2018 CT head showed postop changes chronic small was ischemia. Age related atrophy. Possible old subdural hematoma. Chest x-ray showed probable basilar atelectasis. Difficult to exclude small effusion. Suspect some improvement in aeration. Otherwise patient is asymptomatic now. Carotid duplex showed 50% stenosis. Patient was seen by cardiology and neurology. Patient will be discharged home in stable condition. Patient be continued on aspirin 81 mg daily. Patient does have history of subdural hematoma in the past. Discharge physical examination was done and vitals reviewed Vital Signs - 24 hr 05/16/18 05/16/18 05/16/18 00:00 04:00 08:00 Temperature 96.7 F L 97.3 F L Pulse Rate [ 66 72 83 Pulse Oximetery ] Respiratory 18 20 16 Rate Blood Pressure 137/71 144/78 122/68 [Right Arm Sitting] O2 Sat by Pulse 98 98 Oximetry 05/16/18 05/16/18 11:46 11:48 Temperature Pulse Rate [ 71 Pulse Oximetery ] Respiratory 16 16 Rate Blood Pressure 109/58 [Right Arm Sitting] O2 Sat by Pulse Oximetry Patient Condition at Discharge: Good Plan - Discharge Summary Discharge Rx Participant: No New Discharge Prescriptions: Continue Terazosin [Hytrin] 5 mg PO HS HYDROcodone/APAP 7.5-325MG [[place] 7.5-325] 1 tab PO TID PRN PRN Reason: Pain Lisinopril [Zestril] 10 mg PO DAILY amLODIPine [Norvasc] 5 mg PO QAM Isosorbide Mononitrate ER [Imdur] 30 mg PO QAM Furosemide [Lasix] 40 mg PO BID Vit C/E/Zn/Coppr/Lutein/Zeaxan [Preservision Areds 2 Softgel] 1 cap PO BID Insulin NPH Hum/Reg Insulin Hm [NovoLIN 70-30 100 UNIT/ML VIAL] 38 unit SQ AC -BRKFST Insulin NPH Hum/Reg Insulin Hm [NovoLIN 70-30 100 UNIT/ML VIAL] 34 unit SQ AC -SUPPER traZODone HCL 150 mg PO HS Cholecalciferol [Vitamin D3] 1,000 unit PO DAILY Metoprolol Tartrate [Lopressor] 25 mg PO BID Finasteride [Proscar] 5 mg PO HS Simvastatin [Zocor] 20 mg PO BID Sertraline [Zoloft] 50 mg PO DAILY Aspirin EC [Ecotrin Low Dose] 81 mg PO DAILY #30 tablet. ALPRAZolam [Xanax] 0.5 mg PO HS PRN PRN Reason: Insomnia Discharge Medication List Furosemide [Lasix] 40 mg PO BID 05/29/16 [History] HYDROcodone/APAP 7.5-325MG [[place] 7.5-325] 1 tab PO TID PRN 05/29/16 [History] Insulin NPH Hum/Reg Insulin Hm [NovoLIN 70-30 100 UNIT/ML VIAL] 34 unit SQ AC- SUPPER 05/29/16 [History] Insulin NPH Hum/Reg Insulin Hm [NovoLIN 70-30 100 UNIT/ML VIAL] 38 unit SQ AC- BRKFST 05/29/16 [History] Isosorbide Mononitrate ER [Imdur] 30 mg PO QAM 05/29/16 [History] Lisinopril [Zestril] 10 mg PO DAILY 05/29/16 [History] Terazosin [Hytrin] 5 mg PO HS 05/29/16 [History] Vit C/E/Zn/Coppr/Lutein/Zeaxan [Preservision Areds 2 Softgel] 1 cap PO BID 05/29 [History] amLODIPine [Norvasc] 5 mg PO QAM 05/29/16 [History] Cholecalciferol [Vitamin D3] 1,000 unit PO DAILY 10/03/17 [History] Metoprolol Tartrate [Lopressor] 25 mg PO BID 10/03/17 [History] traZODone HCL 150 mg PO HS 10/03/17 [History] Finasteride [Proscar] 5 mg PO HS 05/08/18 [History] Simvastatin [Zocor] 20 mg PO BID 05/08/18 [History] Sertraline [Zoloft] 50 mg PO DAILY 05/11/18 [History] Aspirin EC [Ecotrin Low Dose] 81 mg PO DAILY #30 tablet. 05/13/18 [Rx] ALPRAZolam [Xanax] 0.5 mg PO HS PRN 05/15/18 [History] Follow up Appointment(s)/Referral(s): Samir Oakley DO [Primary Care Provider] - 05/21/18 11:00 am (Saturday) Alanna Maria MD [STAFF PHYSICIAN] - 05/19/18 3:15 pm (Saturday- Previously scheduled appointment) Patient Instructions/Handouts: Transient Ischemic Attack (DC) Discharge Disposition: HOME SELF-CARE
== END 2018-05-16 18:07 | disposition home or self-care (01) ==
LOC: EC 11:40 → 6SEL 14:25
PROVIDERS: ADMIT Hospitalist; ATTEND Hospitalist
DX: G45.9 Transient cerebral ischemic attack, unspecified (principal); I21.4 Non-ST elevation (NSTEMI) myocardial infarction; I11.0 Hypertensive heart disease with heart failure; I50.32 Chronic diastolic (congestive) heart failure; E78.5 Hyperlipidemia, unspecified; D69.6 Thrombocytopenia, unspecified; E11.40 Type 2 diabetes mellitus with diabetic neuropathy, unspecified; M19.90 Unspecified osteoarthritis, unspecified site; N40.0 Benign prostatic hyperplasia without lower urinary tract symptoms; H35.30 Unspecified macular degeneration; F41.9 Anxiety disorder, unspecified; F32.9 Major depressive disorder, single episode, unspecified; Z95.0 Presence of cardiac pacemaker; Z96.641 Presence of right artificial hip joint; Z86.79 Personal history of other diseases of the circulatory system; Z79.4 Long term (current) use of insulin; Z79.899 Other long term (current) drug therapy; Z79.82 Long term (current) use of aspirin; Z82.3 Family history of stroke
CPT/HCPCS: 99285 ×2; 96360 ×2; 96361 ×4; 36415; 93005; 80053; 82550; 82553; 84484; 85025; 85610; 85730; 71046; 93880; 70450; G0378 ×2; S0138

== ENCOUNTER 2018-10-02 21:26 | Inpatient (IN) | payer MEDICARE, BC ==
[2018-10-02] MEDS ORDERED: NITROGLYCERIN OINT 1 INCH/GM PACKET TOPICAL STA (21:35)
[2018-10-02] MEDS ORDERED: FUROSEMIDE 10 MG/ML 4 ML VIAL IV STA (21:35)
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
[2018-10-02 22:04] LABS: Basophils % (A) 0 %; Eosinophils # (A) 0.1 k/uL (0-0.7); Eosinophils % (A) 1 %; HCT 44.3 % (39.0-53.0); HGB 15.3 gm/dL (13.0-17.5); Lymphocytes # (A) 2.9 k/uL (1.0-4.8); Lymphocytes % (A) 37 %; MCH 32.7 pg (25.0-35.0); MCHC 34.6 g/dL (31.0-37.0); MCV 94.3 fL (80.0-100.0); Mean Platelet Volume 8.7; Monocytes # (A) 0.4 k/uL (0-1.0); Monocytes % (A) 6 %; Neutrophils # (A) 4.3 k/uL (1.3-7.7); Neutrophils % (A) 54 %; Platelet Count 103 k/uL (150-450); RDW 13.7 % (11.5-15.5); WBC 7.8 k/uL (3.8-10.6)
[2018-10-02 22:05] LABS: Glucose,Whole Blood 301 mg/dL (75-99)
--- NOTE | 2018-10-02 22:09 | XR ---
EXAMINATION TYPE: XR chest 1V portable DATE OF EXAM: 10/02/2018 COMPARISON: 05/15/2018 HISTORY: Short of breath TECHNIQUE: Single frontal view of the chest is obtained. FINDINGS: There is pulmonary vascular congestion. There is patchy pulmonary interstitial and alveola r edema on the right side more than the left. Heart is slightly enlarged. There is left axillary pace maker with the lead tips in the right ventricle. IMPRESSION: There is new pulmonary edema compared to last exam and consistent with congestive heart failure. Pneumonia is also possible.
[2018-10-02 22:16] LABS: Partial Thromboplastin Time 24.1 sec (22.0-30.0); Prothrombin Time 9.8 sec (9.0-12.0)
[2018-10-02 22:25] LABS: Albumin 4.4 g/dL (3.5-5.0); Calcium 9.1 mg/dL (8.4-10.2); Magnesium 1.9 mg/dL (1.6-2.3); Potassium 4.4 mmol/L (3.5-5.1); Total Bilirubin 0.3 mg/dL (0.2-1.3); Total Protein 7.1 g/dL (6.3-8.2)
[2018-10-02] MEDS ORDERED: AZITHROMYCIN 500 MG in SODIUM CHLORIDE 0.9% 250 ML IVPB STA (22:29)
[2018-10-02 22:42] LABS: Creatine Kinase MB 1.9 ng/mL (0.0-2.4)
[2018-10-02 22:51] LABS: Troponin I 0.055 ng/mL (0.000-0.034)
[2018-10-03] MEDS ORDERED: ASPIRIN 325 MG TAB PO STA (00:46)
[2018-10-03] MEDS: FUROSEMIDE 10 MG/ML 4 ML VIAL IV SCH ×2 (00:54→12:14)
[2018-10-03] MEDS ORDERED: HEPARIN SODIUM,PORCINE 5,000 UNIT/ML 1 ML VIAL IV ONE (04:19)
[2018-10-03] MEDS ORDERED: HEPARIN SODIUM,PORCINE 5,000 UNIT/ML 1 ML VIAL IV PRN (04:19)
[2018-10-03 05:19] LABS: Basophils % (A) 0 %; Eosinophils % (A) 1 %; HGB 13.6 gm/dL (13.0-17.5); Lymphocytes # (A) 1.3 k/uL (1.0-4.8); Lymphocytes % (A) 17 %; MCHC 32.5 g/dL (31.0-37.0); MCV 95.6 fL (80.0-100.0); Mean Platelet Volume 8.5; Monocytes # (A) 0.5 k/uL (0-1.0); Monocytes % (A) 7 %; Neutrophils # (A) 5.7 k/uL (1.3-7.7); Neutrophils % (A) 75 %; Platelet Count 105 k/uL (150-450); RBC 4.39 m/uL (4.30-5.90); RDW 13.9 % (11.5-15.5); WBC 7.6 k/uL (3.8-10.6)
[2018-10-03] MEDS: HEPARIN SOD,PORK IN 0.45% NACL 25,000 UNIT in 0.45% NACL 1 500ML.BAG IV SCH (05:43)
[2018-10-03 06:55] LABS: Glucose,Whole Blood 209 mg/dL (75-99)
[2018-10-03] MEDS: HYDROcodone/APAP 7.5-325MG 1 EACH TAB PO PRN ×2 (07:01→21:24)
[2018-10-03] MEDS: INSULIN ASPART 100 UNIT/ML 1 ML 10 ML VIAL SQ SCH ×4 (07:02→21:36)
[2018-10-03] MEDS ORDERED: amLODIPine 5 MG TAB PO SCH (09:00)
[2018-10-03] MEDS ORDERED: LISINOPRIL 10 MG TAB PO SCH (09:00)
[2018-10-03] MEDS: ISOSORBIDE MONONITRATE ER 30 MG TAB.ER.24H PO SCH (10:41)
[2018-10-03] MEDS: METOPROLOL TARTRATE 25 MG TAB PO SCH ×2 (10:41→21:37)
[2018-10-03 13:39] LABS: Hemoglobin A1C 6.9 % (4.0-6.0)
[2018-10-03 14:34] LABS: Glucose,Whole Blood 167 mg/dL (75-99)
[2018-10-03] MEDS ORDERED: MELATONIN 1 MG TAB PO PRN (15:57)
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
[2018-10-03 18:15] LABS: Glucose,Whole Blood 219 mg/dL (75-99)
--- NOTE | 2018-10-03 19:17 | ECHOF ---
Referral Reason:nstemi MEASUREMENTS -------- HEIGHT: 175.3 cm WEIGHT: 108.9 kg BP: 121/62 RVIDd: 3.7 cm (< 3.3) IVSd: 1.4 cm (0.6 - 1.1) LVIDd: 5.1 cm (3.9 - 5.3) LVPWd: 1.3 cm (0.6 - 1.1) IVSs: 1.6 cm LVIDs: 3.2 cm LVPWs: 1.5 cm LAESV Index (A-L): 58.67 ml/m Ao Diam: 4.1 cm (2.0 - 3.7) AV Cusp: 1.9 cm (1.5 - 2.6) LA Diam: 4.9 cm (2.7 - 3.8) EPSS: 0.4 cm MV E Jose Cruz: 0.58 m/s MV DecT: 347 ms MV A Jose Cruz: 0.98 m/s MV E/A Ratio: 0.59 AV maxP.78 mmHg AV meanP.81 mmHg AR PHT: 599 ms RAP: 5.00 mmHg RVSP: 32.06 mmHg MV EF SLOPE: 73.85 mm/s (70 - 150) MV EXCURSION: 1.62 cm (> 18.000) FINDINGS -------- Pacerwire seen in RV and RA. This was a technically difficult study with suboptimal views. The left ventricular size is normal. There is mild concentric left ventricular hypertrophy. Overa ll left ventricular systolic function is low-normal with, an EF between 50 - 55 %. [place] Hypokinesis . The right ventricle is mildly enlarged. LA is severely dilated >40 ml/m2 The right atrium is normal in size. 3 ml of Lumason was utilized for enhancement of images. There is mild aortic valve sclerosis. There is mild aortic regurgitation. There is mild aortic st enosis present. Peak/mean gradient across the Aortic Valve is 19.78mmHg / 10.81mmHg. Mild mitral annular calcification present. Mild mitral regurgitation is present. Mild tricuspid regurgitation present. Right ventricular systolic pressure is normal at < 35 mmHg. The right ventricular systolic pressure, as measured by Doppler, is 32.06mmHg. The pulmonic valve was not well visualized. There is no pulmonic regurgitation present. The aortic root size is normal. IVC Not well visulized. There is no pericardial effusion. CONCLUSIONS -------- 1. Pacerwire seen in RV and RA. 2. This was a technically difficult study with suboptimal views. 3. The left ventricular size is normal. 4. There is mild concentric left ventricular hypertrophy. 5. Overall left ventricular systolic function is low-normal with, an EF between 50 - 55 %. 6. [place] Hypokinesis. 7. The right ventricle is mildly enlarged. 8. LA is severely dilated >40 ml/m2 9. 3 ml of Lumason was utilized for enhancement of images. 10. There is mild aortic valve sclerosis. 11. There is mild aortic regurgitation. 12. There is mild aortic stenosis present. 13. Peak/mean gradient across the Aortic Valve is 19.78mmHg / 10.81mmHg. 14. Mild mitral annular calcification present. 15. Mild mitral regurgitation is present. 16. Mild tricuspid regurgitation present. 17. Right ventricular systolic pressure is normal at < 35 mmHg. 18. The pulmonic valve was not well visualized. 19. There is no pulmonic regurgitation present. 20. The aortic root size is normal. 21. IVC Not well visulized. 22. There is no pericardial effusion. DISTRIBUTION FIELD TECHNICIAN: Melvin Dominguez RDCS
[2018-10-03 21:15] LABS: Glucose,Whole Blood 189 mg/dL (75-99)
[2018-10-03] MEDS: ASPIRIN 325 MG TAB PO SCH (21:26)
[2018-10-03] MEDS: ATORVASTATIN 20 MG TAB PO SCH (21:26)
[2018-10-03] MEDS: DOXAZOSIN 4 MG TAB PO SCH (21:26)
[2018-10-03] MEDS: INSULIN DETEMIR 100 UNIT/ML 10 ML VIAL SQ SCH (21:35)
[2018-10-04] MEDS: FUROSEMIDE 10 MG/ML 4 ML VIAL IV SCH ×3 (01:18→20:44)
[2018-10-04] MEDS: HEPARIN SOD,PORK IN 0.45% NACL 25,000 UNIT in 0.45% NACL 1 500ML.BAG IV SCH (05:02)
[2018-10-04] MEDS: HYDROcodone/APAP 7.5-325MG 1 EACH TAB PO PRN ×3 (05:34→20:41)
[2018-10-04 06:13] LABS: Glucose,Whole Blood 171 mg/dL (75-99)
[2018-10-04] MEDS: INSULIN ASPART 100 UNIT/ML 1 ML 10 ML VIAL SQ SCH ×4 (06:58→21:35)
[2018-10-04 07:53] LABS: Basophils % (A) 0 %; Eosinophils # (A) 0.1 k/uL (0-0.7); Eosinophils % (A) 1 %; HCT 38.5 % (39.0-53.0); HGB 12.6 gm/dL (13.0-17.5); Lymphocytes # (A) 1.1 k/uL (1.0-4.8); Lymphocytes % (A) 21 %; MCH 30.9 pg (25.0-35.0); MCHC 32.8 g/dL (31.0-37.0); MCV 94.2 fL (80.0-100.0); Mean Platelet Volume 8.4; Monocytes # (A) 0.4 k/uL (0-1.0); Monocytes % (A) 7 %; Neutrophils # (A) 3.6 k/uL (1.3-7.7); Neutrophils % (A) 69 %; RBC 4.08 m/uL (4.30-5.90); WBC 5.2 k/uL (3.8-10.6)
[2018-10-04 08:18] LABS: Calcium 8.9 mg/dL (8.4-10.2); Potassium 4.4 mmol/L (3.5-5.1)
[2018-10-04] MEDS: ISOSORBIDE MONONITRATE ER 30 MG TAB.ER.24H PO SCH (10:03)
[2018-10-04] MEDS: METOPROLOL TARTRATE 25 MG TAB PO SCH ×2 (10:03→20:41)
[2018-10-04] MEDS ORDERED: ALPRAZolam 0.25 MG TAB PO PRN (10:04)
[2018-10-04] MEDS: FINASTERIDE 5 MG TAB PO SCH (10:04)
[2018-10-04] MEDS: SERTRALINE 50 MG TAB PO SCH (10:04)
[2018-10-04] MEDS: LISINOPRIL 5 MG TAB PO SCH (10:04)
[2018-10-04] MEDS: ASPIRIN 325 MG TAB PO SCH (10:04)
[2018-10-04] MEDS ORDERED: SODIUM CHLORIDE 0.9% 1,000 ML in EMPTY BAG 1 BAG IV ONE (10:04)
[2018-10-04] MEDS: NITROGLYCERIN SL TABS 0.4 MG TAB SUBLINGUAL PRN (10:07)
[2018-10-04] MEDS: ALPRAZolam 0.5 MG TAB PO PRN ×2 (10:18→21:34)
[2018-10-04 11:09] LABS: Platelet Count 96 k/uL (150-450)
[2018-10-04] MEDS ORDERED: MIDAZOLAM 2 MG/2 ML VIAL ONE (11:18)
[2018-10-04] MEDS ORDERED: fentaNYL (PF) 50 MCG/ML 2 ML AMP ONE (11:19)
[2018-10-04] MEDS ORDERED: LIDOCAINE 1% INJ 10MG/ML (20 ML MDV) ONE (11:19)
[2018-10-04] MEDS ORDERED: IV FLUID CONTINUATION 1,000 ML IV ONE (11:21)
[2018-10-04] MEDS ORDERED: fentaNYL (PF) 50 MCG/ML 2 ML AMP IVP ONE (11:40)
[2018-10-04] MEDS ORDERED: LIDOCAINE 1% (PF) 10MG/ML VIAL SQ ONE (11:43)
[2018-10-04] MEDS ORDERED: IOPAMIDOL-370 125ML BTL INJ ONE (11:56)
[2018-10-04] MEDS ORDERED: RX INFO: IV CONTRAST WAS GIVEN 1 EACH MISC MISCELLANE PRN (12:29)
--- NOTE | 2018-10-04 12:29 | P.CARDCATH ---
Date of Procedure: 10/04/18 Preoperative Diagnosis: 1. 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 He is admitted to the hospital with prolonged chest pain and elevation of the troponin values up to 40. Patient is still having intermittent chest pains. This morning patient brushes teeth and had severe pain requiring nitroglycerin. Patient is advised to have a cardiac catheterization for definite diagnosis. Patient and family were explained that the procedure could be associated with high risk because of his age and multiple risk factors. They fully understood and accepted. CONSENT:I have discussed the risks, benefits and alternative therapies for the above-mentioned procedure and for both sedation/analgesia as well as necessary blood product administration, if indicated, as they pertain to this patient. The patient has indicated understanding and acceptance of the risks and procedures discussed. PROCEDURE: Patient was brought to the lab in a fasting state. Patient was given some IV sedation. The right groin is infiltrated with lidocaine and right femoral artery was entered using Seldinger technique. A 6-K[place] catheter was left in place and selective coronary arteriography and left ventriculography was performed. Patient tolerated the procedure well. Femoral angiogram was performed and Angio-Seal was applied for hemostasis. No immediate complications were noted and patient was transferred to [facility] in a stable condition Conscious Sedation: Versed 0mg Fentanyl 12.5 g Duration 16minutes HEMODYNAMICS: Aortic pressure is about 100/60. Left ventricular end-diastolic pressure is about 20-24. There was no gradient across the aortic valve SELECTIVE CORONARY ARTERIOGRAPHY: LEFT MAIN: Short and calcified. It maybe mild intimal disease THE LEFT ANTERIOR DESCENDING CORONARY ARTERY: This is a heavily calcified vessel with multiple lesions involving the proximal LAD and also mid LAD. There is a good-sized diagonal branch. Proximal LAD lesion except 90-95%. There is a mid LAD which is also 90 to 95%. Diagonal branch also has about 80% stenosis THE LEFT CIRCUMFLEX AND IS CORONARY ARTERY: This is a good caliber vessel and dominant. He has about 95% stenosis proximally THE RIGHT CORONARY ARTERY:. This is a nondominant vessel with multiple lesions and total occlusion distally LEFT VENTRICULOGRAPHY: Performed FINAL IMPRESSION: Multivessel disease with multiple lesions including proximal LAD, mid LAD, diagonal and also proximal circumflex. Multiple lesions also in the nondominant right PLAN: Maximum medical therapy. Films are reviewed by Dr. Jones for possible intervention. Patient doesn't want to have bypass surgery. Because of contrast threshold, procedure will not performed tomorrow by Dr. Jones. PROGNOSIS: Guarded
[2018-10-04] MEDS: NITROGLYCERIN-D5W PMX 50 MG in DEXTROSE/WATER 1 250ML.BAG IV SCH (13:22)
[2018-10-04] MEDS: SODIUM CHLORIDE 0.9% 1,000 ML IV SCH (13:27)
[2018-10-04 13:29] VITALS: BMI 35.0
--- NOTE | 2018-10-04 14:09 | P.PN ---
Subjective Patient is admitted for non-ST ration microinfarction for acute pulmonary edema secondary to myocardial infarction. Patient's echocardiogram showed normal ejection fraction patient underwent cardiac catheterization which showed triple vessel disease. Patient is actually probably not a good candidate for CABG and patient is not willing to go for that surgery. Staged coronary intervention starting with LAD is being planned for tomorrow. No overnight events. Patient did have an episode of shortness of breath probably because of the IV fluids that were given for contrast Constitutional: Denied any fatigue denied any fever. Cardio vascular: denied any chest pain, palpitations Gastrointestinal denied any nausea vomiting Pulmonary: Denied any shortness of breath cough Neurologic denied any new focal deficits All inpatient medications were reviewed and appropriate changes in these medications as dictated in the interval history and assessment and plan. Objective - Vital Signs Vital signs: Vital Signs Temp 99.1 F 10/04/18 08:00 Pulse 101 H 10/04/18 08:00 Resp 18 10/04/18 08:00 BP 163/80 10/04/18 08:00 Pulse Ox 97 10/04/18 08:00 Intake & Output 10/03/18 10/04/18 10/04/18 18:59 06:59 18:59 Intake Total 336.667 100 Output Total 700 Balance 336.667 -700 100 Weight 107.6 kg 107.6 kg Intake: IV 100 Intake, IV Titration 306.667 Amount Heparin Sod,Pork in 0.45% 306.667 NaCl 25,000 unit In 0.45 % NaCl 1 500ml.bag @ 20 mls/hr IV .Q24H [facility] Rx#: [id number] Oral 30 Output: Urine 700 Other: Voiding Method Urinal Urinal Urinal # Voids 1 - Exam PHYSICAL EXAMINATION: GENERAL: The patient is alert and oriented x3, not in any acute distress. Well developed, well nourished. HEENT: Pupils are round and equally reacting to light. EOMI. No scleral icterus. No conjunctival pallor. Normocephalic, atraumatic. No pharyngeal erythema. No thyromegaly. CARDIOVASCULAR: S1 and S2 present. No murmurs, rubs, or gallops. PULMONARY: Chest is clear to auscultation, no wheezing or crackles. ABDOMEN: Soft, nontender, nondistended, normoactive bowel sounds. No palpable organomegaly. MUSCULOSKELETAL: No joint swelling or deformity. EXTREMITIES: No cyanosis, clubbing, patient does have bilateral pedal edema NEUROLOGICAL: Gross neurological examination did not reveal any focal deficits. SKIN: No rashes. - Labs CBC & Chem 7: 10/04/18 06:41 10/04/18 06:41 Labs: Abnormal Lab Results - Last 24 Hours (Table) 10/03/18 10/03/18 10/03/18 Range/Units 11:22 13:37 18:13 RBC (4.30-5.90) m/uL Hgb (13.0-17.5) gm/dL Hct (39.0-53.0) % Plt Count (150-450) k/uL APTT (22.0-30.0) sec BUN (9-20) mg/dL Glucose (74-99) mg/dL POC Glucose (mg/dL) 167 H 219 H (75-99) mg/dL CK-MB (CK-2) 66.8 H (0.0-2.4) ng/mL 10/03/18 10/03/18 10/04/18 Range/Units 20:20 21:12 06:11 RBC (4.30-5.90) m/uL Hgb (13.0-17.5) gm/dL Hct (39.0-53.0) % Plt Count (150-450) k/uL APTT 47.8 H (22.0-30.0) sec BUN (9-20) mg/dL Glucose (74-99) mg/dL POC Glucose (mg/dL) 189 H 171 H (75-99) mg/dL CK-MB (CK-2) (0.0-2.4) ng/mL 10/04/18 10/04/18 10/04/18 Range/Units 06:41 06:41 06:41 RBC 4.08 L (4.30-5.90) m/uL Hgb 12.6 L (13.0-17.5) gm/dL Hct 38.5 L (39.0-53.0) % Plt Count 96 L (150-450) k/uL APTT 41.4 H (22.0-30.0) sec BUN 30 H (9-20) mg/dL Glucose 172 H (74-99) mg/dL POC Glucose (mg/dL) (75-99) mg/dL CK-MB (CK-2) (0.0-2.4) ng/mL Assessment and Plan Plan: -Non-ST elevation myocardial infarction: Patient will be continued on IV heparin beta pennie aspirin and a statin, patient is also on lisinopril. Patient is status post cardiac catheterization three-vessel disease; intervention to left anterior descending is being planned for tomorrow -Possible Acute systolic dysfunction from myocardial infarction with exacerbation and pulmonary edema secondary to that: Patient was started on IV Lasix which will be continued. 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 -CHF with chronic diastolic dysfunction -Hypertension -Hyperlipidemia -Type 2 diabetes mellitus patient will remain will remain the same dose of insulin regimen is as yesterday -Benign prostatic hypertrophy: Patient will be resumed on home medications
--- NOTE | 2018-10-04 14:24 | P.PN ---
Subjective Progress Note Date: 10/04/18 Principal diagnosis: Non-ST elevated PA, coronary artery disease, shortness of breath, chest pain This [id number]-year-old male patient of Dr. Oakley, coming in to the emergency department on 10/03/2018 for complaints of increasing shortness of breath, chest pain across his upper chest, patient was placed on BiPAP support when she came into the emergency department, his chest x-ray was consistent with fluid overload/CHF. Patient had acute elevation of his troponins, and his EKG showed some ST segment elevation in lead [address] segment depression in the lateral leads. Today on 10/04/2018 patient is seen in follow-up on selective care unit, he had just returned from the [facility], and he was found to have multivessel coronary artery disease, there was a proximal LAD lesion of 90-95%, mid LAD lesion of 90-95%, and diagonal branch with the 80% stenosis. There was a left circumflex artery stenosis of 95%, his RCA was a nondominant vessel with multiple lesions and total occlusion distally. Patient was recommended to surgical intervention, however he declined bypass surgery. And tomorrow the plan is for Dr. Higuera take the patient back to the [facility] for possible intervention. Patient did have another episode of shortness of breath this morning. Right now he is asymptomatic, no chest pain, no shortness of breath, he is resting comfortably in bed, currently on 2 L per nasal cannula his pulse ox is 97%, afebrile, slightly tachycardic at the moment, with a rate of 101 BPM. Respirations are even and nonlabored, lung sounds reveal some bibasilar crackles. Breath sounds are equal, no wheezes or rhonchi. Objective - Vital Signs Vital signs: Vital Signs Temp 99.1 F 10/04/18 08:00 Pulse 101 H 10/04/18 08:00 Resp 18 10/04/18 08:00 BP 163/80 10/04/18 08:00 Pulse Ox 97 10/04/18 08:00 Intake & Output 10/03/18 10/04/18 10/04/18 18:59 06:59 18:59 Intake Total 336.667 100 Output Total 700 Balance 336.667 -700 100 Weight 107.6 kg 107.6 kg Intake: IV 100 Intake, IV Titration 306.667 Amount Heparin Sod,Pork in 0.45% 306.667 NaCl 25,000 unit In 0.45 % NaCl 1 500ml.bag @ 20 mls/hr IV .Q24H [facility] Rx#: [id number] Oral 30 Output: Urine 700 Other: Voiding Method Urinal Urinal Urinal # Voids 1 - Exam GENERAL EXAM: Alert, pleasant 88-year-old white male comfortable in no apparent distress. HEAD: Normocephalic/atraumatic. EYES: Normal reaction of pupils, equal size. Conjunctiva pink, sclera white. NOSE: Clear with pink turbinates. THROAT: No erythema or exudates. NECK: No masses, no JVD, no thyroid enlargement, no adenopathy. CHEST: No chest wall deformity. Symmetrical expansion. LUNGS: Equal air entry with some bibasilar crackles, no rhonchi or wheezes. CVS: Regular rate and rhythm, normal S1 and S2, no gallops, no murmurs, no rubs ABDOMEN: Soft, nontender. No hepatosplenomegaly, normal bowel sounds, no guarding or rigidity. EXTREMITIES: No clubbing, no edema, no cyanosis, 2+ pulses and upper and lower extremities. MUSCULOSKELETAL: Muscle strength and tone normal. SPINE: No scoliosis or deformity SKIN: No rashes CENTRAL NERVOUS SYSTEM: Alert and oriented -3. No focal deficits, tone is normal in all 4 extremities. PSYCHIATRIC: Alert and oriented -3. Appropriate affect. Intact judgment and insight. - Labs CBC & Chem 7: 10/04/18 06:41 10/04/18 06:41 Labs: Abnormal Lab Results - Last 24 Hours (Table) 10/03/18 10/03/18 10/03/18 Range/Units 11:22 13:37 18:13 RBC (4.30-5.90) m/uL Hgb (13.0-17.5) gm/dL Hct (39.0-53.0) % Plt Count (150-450) k/uL APTT (22.0-30.0) sec BUN (9-20) mg/dL Glucose (74-99) mg/dL POC Glucose (mg/dL) 167 H 219 H (75-99) mg/dL CK-MB (CK-2) 66.8 H (0.0-2.4) ng/mL 10/03/18 10/03/18 10/04/18 Range/Units 20:20 21:12 06:11 RBC (4.30-5.90) m/uL Hgb (13.0-17.5) gm/dL Hct (39.0-53.0) % Plt Count (150-450) k/uL APTT 47.8 H (22.0-30.0) sec BUN (9-20) mg/dL Glucose (74-99) mg/dL POC Glucose (mg/dL) 189 H 171 H (75-99) mg/dL CK-MB (CK-2) (0.0-2.4) ng/mL 10/04/18 10/04/18 10/04/18 Range/Units 06:41 06:41 06:41 RBC 4.08 L (4.30-5.90) m/uL Hgb 12.6 L (13.0-17.5) gm/dL Hct 38.5 L (39.0-53.0) % Plt Count 96 L (150-450) k/uL APTT 41.4 H (22.0-30.0) sec BUN 30 H (9-20) mg/dL Glucose 172 H (74-99) mg/dL POC Glucose (mg/dL) (75-99) mg/dL CK-MB (CK-2) (0.0-2.4) ng/mL Assessment and Plan Plan: Assessment: #1. Non-ST elevated myocardial infarction #2. Acute pulmonary edema #3. Coronary artery disease, multivessel, patient has refused bypass surgery, and has opted for possible PTCA and PCI #4. Hypertension #5. Dyslipidemia #6. Diabetes mellitus type 2 #7. Previous history of fall with subdural hematoma and clot evacuation 3 #8. Previous pacemaker insertion #9. Previous history of myocardial infarction #10. History of degenerative joint disease #11. History of macular degeneration Plan: Patient had his heart catheterization, and was found to have multivessel coronary artery disease, he declined bypass surgery, he has opted for PCI and tomorrow patient is scheduled to have catheterization with possible intervention. Hemodynamically he remains stable, has been having some intermittent episodes of shortness of breath. His troponins topped at 43.2. Continue to follow, today he is breathing easier, he continues on nitroglycerin drip. I performed a history & physical examination of the patient and discussed their management with my nurse practitioner, Angeles Clark. I reviewed the nurse practitioner's note and agree with the documented findings and plan of care. Lung sounds are positive for basilar crackles. The findings and the impression was discussed with the patient. I attest to the documentation by the nurse practitioner. Time with Patient: Less than 30
[2018-10-04 14:34] LABS: Glucose,Whole Blood 192 mg/dL (75-99)
[2018-10-04 17:09] LABS: Glucose,Whole Blood 173 mg/dL (75-99)
[2018-10-04] MEDS: DOXAZOSIN 4 MG TAB PO SCH (20:40)
[2018-10-04] MEDS: ATORVASTATIN 20 MG TAB PO SCH (20:40)
[2018-10-04] MEDS: SENNOSIDES 8.6 MG TAB PO SCH (20:44)
[2018-10-04 21:29] LABS: Glucose,Whole Blood 216 mg/dL (75-99)
[2018-10-04] MEDS: INSULIN DETEMIR 100 UNIT/ML 10 ML VIAL SQ SCH (21:35)
[2018-10-05 03:50] LABS: Calcium 8.6 mg/dL (8.4-10.2); Potassium 4.1 mmol/L (3.5-5.1)
[2018-10-05 03:56] LABS: Basophils % (A) 0 %; Eosinophils # (A) 0.1 k/uL (0-0.7); Eosinophils % (A) 1 %; HCT 37.4 % (39.0-53.0); HGB 12.1 gm/dL (13.0-17.5); Lymphocytes # (A) 1.9 k/uL (1.0-4.8); Lymphocytes % (A) 30 %; MCH 30.2 pg (25.0-35.0); MCHC 32.3 g/dL (31.0-37.0); MCV 93.6 fL (80.0-100.0); Mean Platelet Volume 8.5; Monocytes # (A) 0.5 k/uL (0-1.0); Monocytes % (A) 8 %; Neutrophils # (A) 3.6 k/uL (1.3-7.7); Neutrophils % (A) 59 %; RBC 3.99 m/uL (4.30-5.90); RDW 13.9 % (11.5-15.5); WBC 6.1 k/uL (3.8-10.6)
[2018-10-05 04:02] LABS: Platelet Count 97 k/uL (150-450)
[2018-10-05] MEDS: SODIUM CHLORIDE 0.9% 1,000 ML IV SCH (04:21)
[2018-10-05] MEDS: HEPARIN SOD,PORK IN 0.45% NACL 25,000 UNIT in 0.45% NACL 1 500ML.BAG IV SCH ×2 (04:27→23:25)
[2018-10-05 05:31] LABS: Glucose,Whole Blood 151 mg/dL (75-99)
[2018-10-05] MEDS: METOPROLOL TARTRATE 25 MG TAB PO SCH ×2 (05:35→21:19)
[2018-10-05] MEDS: SERTRALINE 50 MG TAB PO SCH (05:35)
[2018-10-05] MEDS: FINASTERIDE 5 MG TAB PO SCH (05:35)
[2018-10-05] MEDS: ASPIRIN 325 MG TAB PO SCH (05:35)
[2018-10-05] MEDS: INSULIN ASPART 100 UNIT/ML 1 ML 10 ML VIAL SQ SCH ×5 (06:27→21:23)
[2018-10-05] MEDS: LISINOPRIL 5 MG TAB PO SCH (06:28)
[2018-10-05] MEDS: SENNOSIDES 8.6 MG TAB PO SCH ×2 (11:44→21:19)
[2018-10-05] MEDS: FUROSEMIDE 10 MG/ML 4 ML VIAL IV SCH (12:12)
[2018-10-05 12:22] LABS: Glucose,Whole Blood 280 mg/dL (75-99)
--- NOTE | 2018-10-05 13:20 | P.PN ---
Subjective Patient is admitted for non-ST ration microinfarction for acute pulmonary edema secondary to myocardial infarction. Patient's echocardiogram showed normal ejection fraction patient underwent cardiac catheterization which showed triple vessel disease. Patient is actually probably not a good candidate for CABG and patient is not willing to go for that surgery. Staged coronary intervention starting with LAD is being planned for tomorrow. No overnight events. Patient did have an episode of shortness of breath probably because of the IV fluids that were given for contrast 10/05/2018 Patient is still bit short of breath upon ablation to the bathroom. Patient is not willing to undergo Coronary artery bypass grafting. Patient will remain on IV Lasix. Hopefully that will improve his shortness of breath a little bit. Patient's cardiac catheterization images were reviewed by electrical tester because of extensive sclerosis of coronary vasculature LAD is not stent table. Please refer to documentation for further details Constitutional: Denied any fatigue denied any fever. Cardio vascular: denied any chest pain, palpitations Gastrointestinal denied any nausea vomiting Pulmonary: Denied any shortness of breath cough Neurologic denied any new focal deficits All inpatient medications were reviewed and appropriate changes in these medications as dictated in the interval history and assessment and plan. Objective - Vital Signs Vital signs: Vital Signs Temp 98.1 F 10/05/18 08:00 Pulse 72 10/05/18 08:00 Resp 18 10/05/18 08:00 BP 144/76 10/05/18 08:00 Pulse Ox 96 10/05/18 08:00 Intake & Output 10/04/18 10/05/18 10/05/18 18:59 06:59 18:59 Intake Total 280 968.833 430.233 Output Total 1150 800 Balance -870 168.833 430.233 Weight 107.6 kg Intake: IV 100 Intake, IV Titration 843.833 190.233 Amount Heparin Sod,Pork in 0.45% 333.333 190.233 NaCl 25,000 unit In 0.45 % NaCl 1 500ml.bag @ 20 mls/hr IV .Q24H [facility] Rx#: [id number] Nitroglycerin-D5w Pmx 50 10.5 mg In Dextrose/Water 1 250ml.bag @ 5 MCG/MIN 1.5 mls/hr IV .Q24H [facility] Rx#: [id number] Sodium Chloride 0.9% 1, 500 000 ml @ 75 mls/hr IV . [id number] [facility] Rx#:[id number] Oral 180 125 240 Output: Urine 1150 800 Other: Voiding Method Urinal Urinal Urinal # Voids 2 - Exam PHYSICAL EXAMINATION: GENERAL: The patient is alert and oriented x3, not in any acute distress. Well developed, well nourished. HEENT: Pupils are round and equally reacting to light. EOMI. No scleral icterus. No conjunctival pallor. Normocephalic, atraumatic. No pharyngeal erythema. No thyromegaly. CARDIOVASCULAR: S1 and S2 present. No murmurs, rubs, or gallops. PULMONARY: Chest is clear to auscultation, no wheezing or crackles. ABDOMEN: Soft, nontender, nondistended, normoactive bowel sounds. No palpable organomegaly. MUSCULOSKELETAL: No joint swelling or deformity. EXTREMITIES: No cyanosis, clubbing, patient does have bilateral pedal edema NEUROLOGICAL: Gross neurological examination did not reveal any focal deficits. SKIN: No rashes. - Labs CBC & Chem 7: 10/05/18 02:48 10/05/18 02:48 Labs: Abnormal Lab Results - Last 24 Hours (Table) 10/04/18 10/04/18 10/04/18 Range/Units 14:20 16:46 21:27 RBC (4.30-5.90) m/uL Hgb (13.0-17.5) gm/dL Hct (39.0-53.0) % Plt Count (150-450) k/uL APTT (22.0-30.0) sec BUN (9-20) mg/dL Glucose (74-99) mg/dL POC Glucose (mg/dL) 192 H 173 H 216 H (75-99) mg/dL 10/05/18 10/05/18 10/05/18 Range/Units 02:48 02:48 02:48 RBC 3.99 L (4.30-5.90) m/uL Hgb 12.1 L (13.0-17.5) gm/dL Hct 37.4 L (39.0-53.0) % Plt Count 97 L (150-450) k/uL APTT 34.1 H (22.0-30.0) sec BUN 29 H (9-20) mg/dL Glucose 139 H (74-99) mg/dL POC Glucose (mg/dL) (75-99) mg/dL 10/05/18 10/05/18 10/05/18 Range/Units 05:29 10:29 12:19 RBC (4.30-5.90) m/uL Hgb (13.0-17.5) gm/dL Hct (39.0-53.0) % Plt Count (150-450) k/uL APTT 31.6 H (22.0-30.0) sec BUN (9-20) mg/dL Glucose (74-99) mg/dL POC Glucose (mg/dL) 151 H 280 H (75-99) mg/dL Assessment and Plan Plan: -Non-ST elevation myocardial infarction: Patient will be continued on IV heparin beta pennie aspirin and a statin, patient is also on lisinopril. Patient is status post cardiac catheterization three-vessel disease; further plan regarding CABG versus stenting as mentioned above please refer to cardiology documentation for further details -Possible Acute systolic dysfunction from myocardial infarction with exacerbation and pulmonary edema secondary to that: Patient was started on IV Lasix which will be continued. 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 -CHF with chronic diastolic dysfunction -Hypertension -Hyperlipidemia -Type 2 diabetes mellitus patient will remain will remain the same dose of insulin regimen is as yesterday -Benign prostatic hypertrophy: Patient will be resumed on home medications
--- NOTE | 2018-10-05 13:27 | P.PN ---
Subjective Progress Note Date: 10/05/18 This is an 88-year-old gentleman with known history of hypertension, diabetes, hyperlipidemia and prior pacer was noted to the hospital with a nonstress ST elevation myocardial infarction. He underwent a cardiac catheterization by Dr. Dr. Maria which revealed severe multivessel coronary artery disease. The films were reviewed by Dr. Jones who came and spoke with the patient today recommending that he undergo coronary artery bypass grafting surgery or at least have an evaluation by the cardiothoracic surgeons. He spoke with the patient, his and his daughter, patient at this time wishes to only proceed with medical therapy. Blood pressure 144/70 with a heart rate in the 70s, 96% on 2 L of oxygen. White blood cell count 6.1 , hemoglobin 12.1, platelet count 97. Sodium 138, potassium 4.1, BUN 29, creatinine 1.2. Patient denies any chest discomfort this morning, he does state that after walking to the bathroom he did noticed himself to be short of breath. Objective - Vital Signs Vital signs: Vital Signs Temp 98.1 F 10/05/18 08:00 Pulse 72 10/05/18 08:00 Resp 18 10/05/18 08:00 BP 144/76 10/05/18 08:00 Pulse Ox 96 10/05/18 08:00 Intake & Output 10/04/18 10/05/18 10/05/18 18:59 06:59 18:59 Intake Total 280 968.833 430.233 Output Total 1150 800 Balance -870 168.833 430.233 Weight 107.6 kg Intake: IV 100 Intake, IV Titration 843.833 190.233 Amount Heparin Sod,Pork in 0.45% 333.333 190.233 NaCl 25,000 unit In 0.45 % NaCl 1 500ml.bag @ 20 mls/hr IV .Q24H [facility] Rx#: [id number] Nitroglycerin-D5w Pmx 50 10.5 mg In Dextrose/Water 1 250ml.bag @ 5 MCG/MIN 1.5 mls/hr IV .Q24H [facility] Rx#: [id number] Sodium Chloride 0.9% 1, 500 000 ml @ 75 mls/hr IV . [id number] [facility] Rx#:[id number] Oral 180 125 240 Output: Urine 1150 800 Other: Voiding Method Urinal Urinal Urinal # Voids 2 - Exam PHYSICAL EXAMINATION: GENERAL: 88-year-old gentleman in no acute distress at the time of my examination HEENT: Head is atraumatic, normocephalic. Pupils equal, round. Sclera anicteric. Conjunctiva are clear. Mucous membranes of the mouth are moist. Neck is supple. There is no elevated jugular venous pressure. No carotid bruit is heard. HEART EXAMINATION: Heart S1, S2 normal. No murmur or gallop heard. CHEST EXAMINATION: Lungs are clear with diminished air entry to the bases. No chest wall tenderness is noted on palpation or with deep breathing. ABDOMEN: Soft, nontender. Bowel sounds are heard. No organomegaly noted. Right groin soft, no evidence of any hematoma. EXTREMITIES: 2+ peripheral pulses with no evidence of peripheral edema and no calf tenderness noted. NEUROLOGIC patient is awake, alert and oriented 3 . . - Labs CBC & Chem 7: 10/05/18 02:48 10/05/18 02:48 Labs: Abnormal Lab Results - Last 24 Hours (Table) 10/04/18 10/04/18 10/04/18 Range/Units 14:20 16:46 21:27 RBC (4.30-5.90) m/uL Hgb (13.0-17.5) gm/dL Hct (39.0-53.0) % Plt Count (150-450) k/uL APTT (22.0-30.0) sec BUN (9-20) mg/dL Glucose (74-99) mg/dL POC Glucose (mg/dL) 192 H 173 H 216 H (75-99) mg/dL 10/05/18 10/05/18 10/05/18 Range/Units 02:48 02:48 02:48 RBC 3.99 L (4.30-5.90) m/uL Hgb 12.1 L (13.0-17.5) gm/dL Hct 37.4 L (39.0-53.0) % Plt Count 97 L (150-450) k/uL APTT 34.1 H (22.0-30.0) sec BUN 29 H (9-20) mg/dL Glucose 139 H (74-99) mg/dL POC Glucose (mg/dL) (75-99) mg/dL 10/05/18 10/05/18 10/05/18 Range/Units 05:29 10:29 12:19 RBC (4.30-5.90) m/uL Hgb (13.0-17.5) gm/dL Hct (39.0-53.0) % Plt Count (150-450) k/uL APTT 31.6 H (22.0-30.0) sec BUN (9-20) mg/dL Glucose (74-99) mg/dL POC Glucose (mg/dL) 151 H 280 H (75-99) mg/dL Assessment and Plan Plan: Assessment and plan #1 non-ST elevation myocardial infarction, status post cardiac catheterization which revealed severe multivessel coronary artery disease. Patient does not want consultation with cardiothoracic surgery, only wants to proceed with medical therapy. #2 hypertension #3 hyperlipidemia #4 diabetes #5 prior pacemaker implantation. Plan We will continue patient on aspirin, decreasing the dose to 81 mg daily, continue Lipitor, continue current dose of IV Lasix, continue lisinopril, and metoprolol. Continue to monitor the patient, monitoring intake and output along with daily weights and daily lytes BUN and creatinine. DNP note has been reviewed, I agree with a documented findings and plan of care. Patient was seen and examined.
[2018-10-05] MEDS: ALPRAZolam 0.5 MG TAB PO PRN ×2 (13:54→21:19)
--- NOTE | 2018-10-05 15:00 | PN ---
PROGRESS NOTE DATE OF SERVICE: October 05, 2018. This is an 88-year-old male, well known to me. He is my primary patient. The patient was admitted with a non ST-segment elevation myocardial infarction and acute pulmonary edema. We saw him initially in the emergency room. The patient was taken to the catheterization lab by Dr. Maria, was found to have multivessel disease. He apparently was seen by Dr. Higuera today and was told that he should be managed either medically or he would need bypass surgery. The stenting was out of the question. He is giving it some thought. In addition, he has a history of hypertension, hyperlipidemia, diabetes, previous history of a fall with subdural hematoma and clot evacuation x3, pacemaker insertion, previous myocardial infarction, DJD, and history of macular degeneration. We saw the patient initially in the emergency room on October 03. Currently he is resting comfortably. He does remember talking to Dr. Higuera this morning. He is inclined to go of the medical therapy route. He just feels that given his age and also medical problems, surgery would be very difficult on him. He is going to give it some thought. Today his is in the room along with their daughter and son-in-law. He is not having any pain. His breathing is much improved. His edema is improved. Current vital signs show temperature 98.1, heart rate 72, respiratory rate 18, blood pressure 144/76 with mean 98 and 2 L saturation is 97%. Appears in no acute distress. He is sitting at the bedside. HEENT examination is grossly unremarkable. Mucous membranes are moist. No oral lesions. Neck is supple. Full range of motion. No adenopathy or thyromegaly. Neck veins are flat. Cardiovascular examination reveals regular rhythm and rate. Heart rate 72. S1, S2 normal. Lungs reveal some bibasilar crackles. No rhonchi. No wheezes. Breath sounds are diminished. Abdomen is obese. Bowel sounds are heard. Extremities are intact. Mild edema is noted. It is 1+. Skin without rash. Neurologic examination is brief but nonfocal. LABS: Reviewed. White count 6.1, hemoglobin 12.1, hematocrit 37.4, platelet count 97,000. PTT is 31.6. Sodium, potassium, chloride, CO2 all normal. Anion gap normal. BUN 29, creatinine 1.12. X-ray from the is reviewed. Cath report is reviewed. Cardiology notes are reviewed. Medications are reviewed. ASSESSMENT: 1. Non ST-segment elevation myocardial infarction. 2. Acute pulmonary edema secondary to #1. 3. Recent catheterization showing multivessel coronary artery disease, not amenable to PCI. 4. Hypertension. 5. Hyperlipidemia. 6. Diabetes mellitus. 7. Previous history of fall with subdural hematoma and clot evacuation x3. 8. History of pacemaker insertion. 9. Previous history of myocardial infarction. 10.History of degenerative joint disease. 11.Obesity. 12.History of macular degeneration. PLAN: The patient was seen today by Cardiology. He explained to the patient that the patient would be only a bypass grafting candidate and/or medical management candidate. Angioplasty with stenting was out of the question. The patient will give it some thought. He is inclined to go to the medical rounds with weight control, diet, etc. because of his age. Again, he will give it some additional consideration. From the pulmonary standpoint, his COPD is only moderate in severity and would support a general anesthetic procedure and would support bypass grafting. Again, he is going to consider it and decide what might be best for him. We will continue to follow. Prognosis is guarded. MMODL / IJN: [id number] /
[2018-10-05 17:12] LABS: Glucose,Whole Blood 247 mg/dL (75-99)
[2018-10-05] MEDS: NITROGLYCERIN SL TABS 0.4 MG TAB SUBLINGUAL PRN (18:12)
[2018-10-05 18:25] LABS: Glucose,Whole Blood 285 mg/dL (75-99)
[2018-10-05 21:05] LABS: Glucose,Whole Blood 224 mg/dL (75-99)
[2018-10-05] MEDS: DOXAZOSIN 4 MG TAB PO SCH (21:19)
[2018-10-05] MEDS: ATORVASTATIN 20 MG TAB PO SCH (21:19)
[2018-10-05] MEDS: INSULIN DETEMIR 100 UNIT/ML 10 ML VIAL SQ SCH ×2 (21:19→21:23)
[2018-10-05] MEDS: NITROGLYCERIN-D5W PMX 50 MG in DEXTROSE/WATER 1 250ML.BAG IV SCH (21:24)
[2018-10-06] MEDS: FUROSEMIDE 10 MG/ML 4 ML VIAL IV SCH ×2 (02:18→12:19)
[2018-10-06 05:58] LABS: Basophils % (A) 0 %; Eosinophils # (A) 0.1 k/uL (0-0.7); Eosinophils % (A) 1 %; HCT 39.4 % (39.0-53.0); HGB 13.4 gm/dL (13.0-17.5); Lymphocytes % (A) 18 %; MCH 31.7 pg (25.0-35.0); MCHC 33.9 g/dL (31.0-37.0); MCV 93.4 fL (80.0-100.0); Mean Platelet Volume 8.9; Monocytes # (A) 0.4 k/uL (0-1.0); Monocytes % (A) 7 %; Neutrophils # (A) 4.3 k/uL (1.3-7.7); Neutrophils % (A) 73 %; RBC 4.22 m/uL (4.30-5.90); RDW 13.6 % (11.5-15.5); WBC 5.9 k/uL (3.8-10.6)
[2018-10-06 06:01] LABS: Platelet Count 90 k/uL (150-450)
[2018-10-06 06:25] LABS: Glucose,Whole Blood 262 mg/dL (75-99)
[2018-10-06 06:26] LABS: Calcium 8.7 mg/dL (8.4-10.2)
[2018-10-06] MEDS: INSULIN ASPART 100 UNIT/ML 1 ML 10 ML VIAL SQ SCH ×6 (06:36→21:13)
[2018-10-06] MEDS: SENNOSIDES 8.6 MG TAB PO SCH ×2 (09:10→21:13)
[2018-10-06] MEDS: SERTRALINE 50 MG TAB PO SCH (09:10)
[2018-10-06] MEDS: METOPROLOL TARTRATE 25 MG TAB PO SCH ×2 (09:10→21:12)
[2018-10-06] MEDS: ASPIRIN 325 MG TAB PO SCH (09:10)
[2018-10-06] MEDS: LISINOPRIL 5 MG TAB PO SCH (09:10)
[2018-10-06] MEDS: FINASTERIDE 5 MG TAB PO SCH (09:10)
[2018-10-06] MEDS ORDERED: MAGNESIUM HYDROXIDE 2,400 MG/10 ML CUP PO PRN (09:12)
[2018-10-06 11:33] LABS: Glucose,Whole Blood 305 mg/dL (75-99)
[2018-10-06] MEDS ORDERED: traMADol 50 MG TAB PO PRN (12:16)
--- NOTE | 2018-10-06 12:21 | P.PN ---
Subjective Progress Note Date: 10/06/18 This is an 88-year-old gentleman with known history of hypertension, diabetes, hyperlipidemia and prior pacer was noted to the hospital with a nonstress ST elevation myocardial infarction. He underwent a cardiac catheterization by Dr. Dr. Maria which revealed severe multivessel coronary artery disease. The films were reviewed by Dr. Jones who came and spoke with the patient today recommending that he undergo coronary artery bypass grafting surgery or at least have an evaluation by the cardiothoracic surgeons. He spoke with the patient, his and his daughter, patient at this time wishes to only proceed with medical therapy. Blood pressure 144/70 with a heart rate in the 70s, 96% on 2 L of oxygen. White blood cell count 6.1 , hemoglobin 12.1, platelet count 97. Sodium 138, potassium 4.1, BUN 29, creatinine 1.2. Patient denies any chest discomfort this morning, he does state that after walking to the bathroom he did noticed himself to be short of breath. 10/06/2018 Patient was seen and examined this morning, he did have an episode of angina while walking through the night, this morning he walked in the [place] with physical therapy and has had no symptoms of angina or shortness of breath. Blood pressure 108/70 with a heart rate of 90, 94% on 2 L of oxygen. We will discontinue the IV heparin today, start the patient on Ranexa. Dr. Maria did have a lengthy discussion with the patient and his and the decision was made at this point in time to consider maximal medical therapy. Plan for possible discharge home in 24 hours if stable. Objective - Vital Signs Vital signs: Vital Signs Temp 97.5 F L 10/05/18 20:00 Pulse 81 10/06/18 10:54 Resp 20 10/06/18 03:43 BP 118/63 10/06/18 10:54 Pulse Ox 97 10/06/18 10:54 Intake & Output 10/05/18 10/06/18 10/06/18 18:59 06:59 18:59 Intake Total 430.233 309.767 240 Output Total 400 600 Balance 430.233 -90.233 -360 Weight 103.4 kg Intake: Intake, IV Titration 190.233 309.767 Amount Heparin Sod,Pork in 0.45% 190.233 309.767 NaCl 25,000 unit In 0.45 % NaCl 1 500ml.bag @ 20 mls/hr IV .Q24H [facility] Rx#: [id number] Oral 240 240 Output: Urine 400 600 Other: Voiding Method Urinal Urinal # Voids 150 - Exam PHYSICAL EXAMINATION: GENERAL: 88-year-old gentleman in no acute distress at the time of my examination HEENT: Head is atraumatic, normocephalic. Pupils equal, round. Sclera anicteric. Conjunctiva are clear. Mucous membranes of the mouth are moist. Neck is supple. There is no elevated jugular venous pressure. No carotid bruit is heard. HEART EXAMINATION: Heart S1, S2 normal. No murmur or gallop heard. CHEST EXAMINATION: Lungs are clear with diminished air entry to the bases. No chest wall tenderness is noted on palpation or with deep breathing. ABDOMEN: Soft, nontender. Bowel sounds are heard. No organomegaly noted. Right groin soft, no evidence of any hematoma. EXTREMITIES: 2+ peripheral pulses with no evidence of peripheral edema and no calf tenderness noted. NEUROLOGIC patient is awake, alert and oriented 3 . . - Labs CBC & Chem 7: 10/06/18 05:13 10/06/18 05:13 Labs: Abnormal Lab Results - Last 24 Hours (Table) 10/05/18 10/05/18 10/05/18 Range/Units 12:19 16:45 18:17 RBC (4.30-5.90) m/uL Plt Count (150-450) k/uL APTT (22.0-30.0) sec BUN (9-20) mg/dL Glucose (74-99) mg/dL POC Glucose (mg/dL) 280 H 247 H 285 H (75-99) mg/dL 10/05/18 10/05/18 10/06/18 Range/Units 20:55 21:04 05:13 RBC 4.22 L (4.30-5.90) m/uL Plt Count 90 L (150-450) k/uL APTT 44.9 H (22.0-30.0) sec BUN (9-20) mg/dL Glucose (74-99) mg/dL POC Glucose (mg/dL) 224 H (75-99) mg/dL 10/06/18 10/06/18 10/06/18 Range/Units 05:13 05:13 06:23 RBC (4.30-5.90) m/uL Plt Count (150-450) k/uL APTT 52.4 H (22.0-30.0) sec BUN 27 H (9-20) mg/dL Glucose 253 H (74-99) mg/dL POC Glucose (mg/dL) 262 H (75-99) mg/dL 10/06/18 Range/Units 11:28 RBC (4.30-5.90) m/uL Plt Count (150-450) k/uL APTT (22.0-30.0) sec BUN (9-20) mg/dL Glucose (74-99) mg/dL POC Glucose (mg/dL) 305 H (75-99) mg/dL Assessment and Plan Plan: Assessment and plan #1 non-ST elevation myocardial infarction, status post cardiac catheterization which revealed severe multivessel coronary artery disease. Patient does not want consultation with cardiothoracic surgery, only wants to proceed with medical therapy. #2 hypertension #3 hyperlipidemia #4 diabetes #5 prior pacemaker implantation. Plan We will continue patient on aspirin, 81 mg daily, continue Lipitor, continue current dose of IV Lasix, continue lisinopril, and metoprolol. We'll discontinue the IV heparin today and start the patient on Ranexa. If patient remains symptom. Free plan for possible discharge home in 24 hours. DNP note has been reviewed, I agree with a documented findings and plan of care. Patient was seen and examined.
--- NOTE | 2018-10-06 12:57 | P.PN ---
Subjective Patient is admitted for non-ST ration microinfarction for acute pulmonary edema secondary to myocardial infarction. Patient's echocardiogram showed normal ejection fraction patient underwent cardiac catheterization which showed triple vessel disease. Patient is actually probably not a good candidate for CABG and patient is not willing to go for that surgery. Staged coronary intervention starting with LAD is being planned for tomorrow. No overnight events. Patient did have an episode of shortness of breath probably because of the IV fluids that were given for contrast 10/05/2018 Patient is still bit short of breath upon ablation to the bathroom. Patient is not willing to undergo Coronary artery bypass grafting. Patient will remain on IV Lasix. Hopefully that will improve his shortness of breath a little bit. Patient's cardiac catheterization images were reviewed by procurement agent because of extensive sclerosis of coronary vasculature LAD is not stent table. Please refer to documentation for further details 10/06/2018 Patient had chest pain yesterday improved with nitroglycerin. Patient will be started on Ranexa IV heparin will be discussed in your today. Patient is not willing to take Lantus and pre-meal regimen, I counseled him extensive regarding this regimen and patient is agreeable, case operator will verify whether Lantus and NovoLog is covered by his insurance Constitutional: Denied any fatigue denied any fever. Cardio vascular: denied any chest pain, palpitations Gastrointestinal denied any nausea vomiting Pulmonary: Denied any shortness of breath cough Neurologic denied any new focal deficits All inpatient medications were reviewed and appropriate changes in these medications as dictated in the interval history and assessment and plan. Objective - Vital Signs Vital signs: Vital Signs Temp 97.5 F L 10/05/18 20:00 Pulse 81 10/06/18 10:54 Resp 20 10/06/18 03:43 BP 118/63 10/06/18 10:54 Pulse Ox 97 10/06/18 10:54 Intake & Output 10/05/18 10/06/18 10/06/18 18:59 06:59 18:59 Intake Total 430.233 309.767 240 Output Total 400 600 Balance 430.233 -90.233 -360 Weight 103.4 kg Intake: Intake, IV Titration 190.233 309.767 Amount Heparin Sod,Pork in 0.45% 190.233 309.767 NaCl 25,000 unit In 0.45 % NaCl 1 500ml.bag @ 20 mls/hr IV .Q24H [facility] Rx#: [id number] Oral 240 240 Output: Urine 400 600 Other: Voiding Method Urinal Urinal # Voids 150 - Exam PHYSICAL EXAMINATION: GENERAL: The patient is alert and oriented x3, not in any acute distress. Well developed, well nourished. HEENT: Pupils are round and equally reacting to light. EOMI. No scleral icterus. No conjunctival pallor. Normocephalic, atraumatic. No pharyngeal erythema. No thyromegaly. CARDIOVASCULAR: S1 and S2 present. No murmurs, rubs, or gallops. PULMONARY: Chest is clear to auscultation, no wheezing or crackles. ABDOMEN: Soft, nontender, nondistended, normoactive bowel sounds. No palpable organomegaly. MUSCULOSKELETAL: No joint swelling or deformity. EXTREMITIES: No cyanosis, clubbing, patient does have bilateral pedal edema NEUROLOGICAL: Gross neurological examination did not reveal any focal deficits. SKIN: No rashes. - Labs CBC & Chem 7: 10/06/18 05:13 10/06/18 05:13 Labs: Abnormal Lab Results - Last 24 Hours (Table) 10/05/18 10/05/18 10/05/18 Range/Units 16:45 18:17 20:55 RBC (4.30-5.90) m/uL Plt Count (150-450) k/uL APTT 44.9 H (22.0-30.0) sec BUN (9-20) mg/dL Glucose (74-99) mg/dL POC Glucose (mg/dL) 247 H 285 H (75-99) mg/dL 10/05/18 10/06/18 10/06/18 Range/Units 21:04 05:13 05:13 RBC 4.22 L (4.30-5.90) m/uL Plt Count 90 L (150-450) k/uL APTT (22.0-30.0) sec BUN 27 H (9-20) mg/dL Glucose 253 H (74-99) mg/dL POC Glucose (mg/dL) 224 H (75-99) mg/dL 10/06/18 10/06/18 10/06/18 Range/Units 05:13 06:23 11:28 RBC (4.30-5.90) m/uL Plt Count (150-450) k/uL APTT 52.4 H (22.0-30.0) sec BUN (9-20) mg/dL Glucose (74-99) mg/dL POC Glucose (mg/dL) 262 H 305 H (75-99) mg/dL Assessment and Plan Plan: -Non-ST elevation myocardial infarction: Heparin is being discussed uterine patient will be on Ranexa pennie aspirin and a statin, patient is also on lisinopril. Patient is status post cardiac catheterization three-vessel disease ; further plan regarding CABG versus stenting as mentioned above please refer to cardiology documentation for further details -Possible Acute systolic dysfunction from myocardial infarction with exacerbation and pulmonary edema secondary to that: Patient was started on IV Lasix which will be continued. 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 -CHF with chronic diastolic dysfunction -Hypertension -Hyperlipidemia -Type 2 diabetes mellitus blood sugars are elevated because patient did decline to Levemir last night patient was started on female insulin as well -Benign prostatic hypertrophy: Patient will be resumed on home medications
[2018-10-06 16:26] LABS: Glucose,Whole Blood 254 mg/dL (75-99)
--- NOTE | 2018-10-06 17:05 | P.PN ---
Subjective Progress Note Date: 10/06/18 88-year-old male patient, who is being seen in follow-up today. The patient was admitted for an acute non-ST segment elevation myocardial infarction CHF and pulmonary edema. The patient is feeling better today. Has no specific complaints. He has a pacemaker in place. He has had previous history of hypertension, hyperlipidemia, diabetes mellitus and previous history of fall with subsequent subdural hematoma formation. The patient has responded very nicely to diuretics. His weight is down from 108 kg down to 103 kg. He is producing excellent amount of urine output. No shortness of breath. No chest pain. The echocardiogram from admission shows an ejection fraction of 50-55%. There was evidence of mild aortic valve sclerosis and regurgitation and stenosis. No significant pulmonary hypertension. No evidence of any pericardial effusion. Significant leukocytosis. Blood work and electrodes are all within normal limits. Still on Lasix 40 mg IV push every 12 hours. Objective - Vital Signs Vital signs: Vital Signs Temp 96.7 F L 10/06/18 16:00 Pulse 80 10/06/18 16:00 Resp 16 10/06/18 16:00 BP 105/65 10/06/18 16:00 Pulse Ox 97 10/06/18 16:00 Intake & Output 10/05/18 10/06/18 10/06/18 18:59 06:59 18:59 Intake Total 430.233 309.767 480 Output Total 400 600 Balance 430.233 -90.233 -120 Weight 103.4 kg Intake: Intake, IV Titration 190.233 309.767 Amount Heparin Sod,Pork in 0.45% 190.233 309.767 NaCl 25,000 unit In 0.45 % NaCl 1 500ml.bag @ 20 mls/hr IV .Q24H [facility] Rx#: [id number] Oral 240 480 Output: Urine 400 600 Other: Voiding Method Urinal Urinal Urinal # Voids 150 - Exam GENERAL EXAM: Alert, pleasant 88-year-old white male comfortable in no apparent distress. HEAD: Normocephalic/atraumatic. EYES: Normal reaction of pupils, equal size. Conjunctiva pink, sclera white. NOSE: Clear with pink turbinates. THROAT: No erythema or exudates. NECK: No masses, no JVD, no thyroid enlargement, no adenopathy. CHEST: No chest wall deformity. Symmetrical expansion. LUNGS: Equal air entry with some bibasilar crackles, no rhonchi or wheezes. CVS: Regular rate and rhythm, normal S1 and S2, no gallops, no murmurs, no rubs ABDOMEN: Soft, nontender. No hepatosplenomegaly, normal bowel sounds, no guarding or rigidity. EXTREMITIES: No clubbing, no edema, no cyanosis, 2+ pulses and upper and lower extremities. MUSCULOSKELETAL: Muscle strength and tone normal. SPINE: No scoliosis or deformity SKIN: No rashes CENTRAL NERVOUS SYSTEM: Alert and oriented -3. No focal deficits, tone is normal in all 4 extremities. PSYCHIATRIC: Alert and oriented -3. Appropriate affect. Intact judgment and insight. - Labs CBC & Chem 7: 10/06/18 05:13 10/06/18 05:13 Labs: Abnormal Lab Results - Last 24 Hours (Table) 10/05/18 10/05/18 10/05/18 Range/Units 16:45 18:17 20:55 RBC (4.30-5.90) m/uL Plt Count (150-450) k/uL APTT 44.9 H (22.0-30.0) sec BUN (9-20) mg/dL Glucose (74-99) mg/dL POC Glucose (mg/dL) 247 H 285 H (75-99) mg/dL 10/05/18 10/06/18 10/06/18 Range/Units 21:04 05:13 05:13 RBC 4.22 L (4.30-5.90) m/uL Plt Count 90 L (150-450) k/uL APTT (22.0-30.0) sec BUN 27 H (9-20) mg/dL Glucose 253 H (74-99) mg/dL POC Glucose (mg/dL) 224 H (75-99) mg/dL 10/06/18 10/06/18 10/06/18 Range/Units 05:13 06:23 11:28 RBC (4.30-5.90) m/uL Plt Count (150-450) k/uL APTT 52.4 H (22.0-30.0) sec BUN (9-20) mg/dL Glucose (74-99) mg/dL POC Glucose (mg/dL) 262 H 305 H (75-99) mg/dL 10/06/18 Range/Units 16:25 RBC (4.30-5.90) m/uL Plt Count (150-450) k/uL APTT (22.0-30.0) sec BUN (9-20) mg/dL Glucose (74-99) mg/dL POC Glucose (mg/dL) 254 H (75-99) mg/dL Assessment and Plan Plan: Assessment #1. Acute Non-ST elevated myocardial infarction, currently free of any chest pain #2. Acute pulmonary edema, improving and the patient has done very nicely with diuresis and there is significant improvement in overall pulmonary status. Echocardiogram showing a preserved LV function. #3. Coronary artery disease, multivessel, patient has refused bypass surgery, and the patient was found to have severe multivessel coronary artery disease. The patient wanted to please only with medical therapy and no intervention was done accordingly. He has a previous pacemaker in place. #4. Hypertension #5. Dyslipidemia #6. Diabetes mellitus type 2 #7. Previous history of fall with subdural hematoma and clot evacuation 3 #8. Previous pacemaker insertion #9. Previous history of myocardial infarction #10. History of degenerative joint disease #11. History of macular degeneration Plan No surgical intervention to be considered for his underlying coronary artery disease. Is currently free of any chest pain. We'll diuresis patient for another 24 hours. Overall cardio pulmonary status is stable. Renal function stable. The patient is producing adequate amount of urine output. We'll continue to follow up this patient.
[2018-10-06] MEDS: HYDROcodone/APAP 7.5-325MG 1 EACH TAB PO PRN (17:24)
[2018-10-06 20:25] LABS: Glucose,Whole Blood 195 mg/dL (75-99)
[2018-10-06] MEDS: DOXAZOSIN 4 MG TAB PO SCH (21:12)
[2018-10-06] MEDS: ATORVASTATIN 20 MG TAB PO SCH (21:12)
[2018-10-06] MEDS: INSULIN DETEMIR 100 UNIT/ML 10 ML VIAL SQ SCH (21:13)
[2018-10-06] MEDS: HEPARIN SOD,PORK IN 0.45% NACL 25,000 UNIT in 0.45% NACL 1 500ML.BAG IV SCH (23:01)
[2018-10-06] MEDS: ALPRAZolam 0.5 MG TAB PO PRN (23:01)
[2018-10-07] MEDS: FUROSEMIDE 10 MG/ML 4 ML VIAL IV SCH ×2 (03:13→12:58)
[2018-10-07 04:08] VITALS: RESP 20
[2018-10-07 06:07] LABS: Glucose,Whole Blood 177 mg/dL (75-99)
[2018-10-07] MEDS: INSULIN ASPART 100 UNIT/ML 1 ML 10 ML VIAL SQ SCH ×6 (06:51→17:17)
[2018-10-07 07:11] LABS: Basophils % (A) 0 %; Eosinophils # (A) 0.1 k/uL (0-0.7); Eosinophils % (A) 2 %; HCT 41.4 % (39.0-53.0); HGB 13.8 gm/dL (13.0-17.5); Lymphocytes # (A) 1.6 k/uL (1.0-4.8); Lymphocytes % (A) 25 %; MCH 31.2 pg (25.0-35.0); MCHC 33.3 g/dL (31.0-37.0); MCV 93.7 fL (80.0-100.0); Mean Platelet Volume 9.2; Monocytes # (A) 0.4 k/uL (0-1.0); Monocytes % (A) 7 %; Neutrophils # (A) 4.2 k/uL (1.3-7.7); Neutrophils % (A) 65 %; RBC 4.42 m/uL (4.30-5.90); RDW 13.6 % (11.5-15.5); WBC 6.5 k/uL (3.8-10.6)
[2018-10-07 07:15] LABS: Platelet Count 97 k/uL (150-450)
[2018-10-07 07:26] LABS: Potassium 3.9 mmol/L (3.5-5.1)
[2018-10-07] MEDS: SENNOSIDES 8.6 MG TAB PO SCH (08:27)
[2018-10-07] MEDS: FINASTERIDE 5 MG TAB PO SCH (08:31)
[2018-10-07] MEDS: METOPROLOL TARTRATE 25 MG TAB PO SCH (08:31)
[2018-10-07] MEDS: ASPIRIN 325 MG TAB PO SCH (08:31)
[2018-10-07] MEDS: SERTRALINE 50 MG TAB PO SCH (08:31)
[2018-10-07] MEDS: LISINOPRIL 5 MG TAB PO SCH (08:31)
--- NOTE | 2018-10-07 08:35 | XR ---
EXAMINATION TYPE: XR chest 2V DATE OF EXAM: 10/07/2018 COMPARISON: 10/02/2018 TECHNIQUE: PA and lateral views submitted. HISTORY: Shortness of breath FINDINGS: Bilateral airspace disease and pleural effusion demonstrates interval improvement. Cardiac device and atherosclerotic change aorta. No sizable pneumothorax. Arthropathy of the shoulders. Interstitium is improved. IMPRESSION: 1. Interval improvement in appearance of the chest is reduction in patchy infiltrates. Persistent inf iltrate and pleural effusion. Differential diagnosis includes improving pulmonary edema or pneumonia.
[2018-10-07] MEDS: HYDROcodone/APAP 7.5-325MG 1 EACH TAB PO PRN (11:10)
[2018-10-07 11:53] LABS: Glucose,Whole Blood 211 mg/dL (75-99)
--- NOTE | 2018-10-07 12:46 | P.PN ---
Subjective Progress Note Date: 10/07/18 88-year-old male patient, who is being seen in follow-up today. The patient was admitted for an acute non-ST segment elevation myocardial infarction CHF and pulmonary edema. The patient is feeling better today. Has no specific complaints. He has a pacemaker in place. He has had previous history of hypertension, hyperlipidemia, diabetes mellitus and previous history of fall with subsequent subdural hematoma formation. The patient has responded very nicely to diuretics. His weight is down from 108 kg down to 103 kg. He is producing excellent amount of urine output. No shortness of breath. No chest pain. The echocardiogram from admission shows an ejection fraction of 50-55%. There was evidence of mild aortic valve sclerosis and regurgitation and stenosis. No significant pulmonary hypertension. No evidence of any pericardial effusion. Significant leukocytosis. Blood work and electrodes are all within normal limits. Still on Lasix 40 mg IV push every 12 hours. On today's evaluation of 10/07/2018, the patient is being seen in follow-up. He is doing well. He remains on IV Lasix 40 mg every 12 hours. Lower extremity edema is improving. He remains also on IV heparin. No chest pain. No cough or sputum production. No hemoptysis or pleurisy. He is having is stable urine output and his renal function is also stable with a creatinine of 1.1. I took him off oxygen and his pulse ox remained at 96% on room air. He is hemodynamically stable and is afebrile. Objective - Vital Signs Vital signs: Vital Signs Temp 97.0 F L 10/07/18 12:12 Pulse 80 10/07/18 12:14 Resp 20 10/07/18 12:14 BP 96/62 10/07/18 12:12 Pulse Ox 96 10/07/18 12:12 Intake & Output 10/06/18 10/07/18 10/07/18 18:59 06:59 18:59 Intake Total 1380 180 Output Total 1225 Balance 155 180 Weight 113.4 kg Intake: Intake, IV Titration 500 Amount Heparin Sod,Pork in 0.45% 500 NaCl 25,000 unit In 0.45 % NaCl 1 500ml.bag @ 20 mls/hr IV .Q24H [facility] Rx#: [id number] Oral 880 180 Output: Urine 1225 Other: Voiding Method Urinal Urinal Urinal # Voids 1 # Bowel Movements 1 - Exam GENERAL EXAM: Alert, pleasant 88-year-old white male comfortable in no apparent distress. HEAD: Normocephalic/atraumatic. EYES: Normal reaction of pupils, equal size. Conjunctiva pink, sclera white. NOSE: Clear with pink turbinates. THROAT: No erythema or exudates. NECK: No masses, no JVD, no thyroid enlargement, no adenopathy. CHEST: No chest wall deformity. Symmetrical expansion. LUNGS: Equal air entry with some bibasilar crackles, no rhonchi or wheezes. CVS: Regular rate and rhythm, normal S1 and S2, no gallops, no murmurs, no rubs ABDOMEN: Soft, nontender. No hepatosplenomegaly, normal bowel sounds, no guarding or rigidity. EXTREMITIES: No clubbing, no edema, no cyanosis, 2+ pulses and upper and lower extremities. MUSCULOSKELETAL: Muscle strength and tone normal. SPINE: No scoliosis or deformity SKIN: No rashes CENTRAL NERVOUS SYSTEM: Alert and oriented -3. No focal deficits, tone is normal in all 4 extremities. PSYCHIATRIC: Alert and oriented -3. Appropriate affect. Intact judgment and insight. - Labs CBC & Chem 7: 10/07/18 06:41 10/07/18 06:41 Labs: Abnormal Lab Results - Last 24 Hours (Table) 10/06/18 10/06/18 10/07/18 Range/Units 16:25 20:25 06:06 Plt Count (150-450) k/uL APTT (22.0-30.0) sec BUN (9-20) mg/dL Glucose (74-99) mg/dL POC Glucose (mg/dL) 254 H 195 H 177 H (75-99) mg/dL 10/07/18 10/07/18 10/07/18 Range/Units 06:41 06:41 06:41 Plt Count 97 L (150-450) k/uL APTT 71.5 H (22.0-30.0) sec BUN 27 H (9-20) mg/dL Glucose 168 H (74-99) mg/dL POC Glucose (mg/dL) (75-99) mg/dL 10/07/18 Range/Units 11:49 Plt Count (150-450) k/uL APTT (22.0-30.0) sec BUN (9-20) mg/dL Glucose (74-99) mg/dL POC Glucose (mg/dL) 211 H (75-99) mg/dL Assessment and Plan Plan: Assessment #1. Acute Non-ST elevated myocardial infarction, currently free of any chest pain #2. Acute pulmonary edema, improving and the patient has done very nicely with diuresis and there is significant improvement in overall pulmonary status. Echocardiogram showing a preserved LV function. The patient is still being diuresed IV Lasix and he remains in a negative fluid balance. He has good urine output. #3. Coronary artery disease, multivessel, patient has refused bypass surgery, and the patient was found to have severe multivessel coronary artery disease. The patient wanted to please only with medical therapy and no intervention was done accordingly. He has a previous pacemaker in place. #4. Hypertension #5. Dyslipidemia #6. Diabetes mellitus type 2 #7. Previous history of fall with subdural hematoma and clot evacuation 3 #8. Previous pacemaker insertion #9. Previous history of myocardial infarction #10. History of degenerative joint disease #11. History of macular degeneration Plan The pulmonary status is stable. I discontinued oxygen and the pulse ox on room air is 96%. The issue of anticoagulation left up to cardiology. I noted that the patient has a irregular heart rate is typical of atrial fibrillation. His monitor showing A. fib. We'll discuss with cardiology. I do not think it'll be a good candidate for long-term and coagulation knowing that he has a previous history of fall and subdural hematoma that needed surgical intervention. He is lower extremity edema is improving. He was taken off oxygen. Continued IV Lasix follow 24 hours. We'll continue to follow. Possible discharge within next 24 hours.
[2018-10-07] MEDS ORDERED: APIXABAN 5 MG TAB PO SCH (14:00)
[2018-10-07] MEDS ORDERED: ASPIRIN 81 MG PO SCH (14:00)
--- NOTE | 2018-10-07 14:57 | P.PN ---
Subjective Progress Note Date: 10/07/18 This is an 88-year-old gentleman with known history of hypertension, diabetes, hyperlipidemia and prior pacer was noted to the hospital with a nonstress ST elevation myocardial infarction. He underwent a cardiac catheterization by Dr. Dr. Maria which revealed severe multivessel coronary artery disease. The films were reviewed by Dr. Jones who came and spoke with the patient today recommending that he undergo coronary artery bypass grafting surgery or at least have an evaluation by the cardiothoracic surgeons. He spoke with the patient, his and his daughter, patient at this time wishes to only proceed with medical therapy. Blood pressure 144/70 with a heart rate in the 70s, 96% on 2 L of oxygen. White blood cell count 6.1 , hemoglobin 12.1, platelet count 97. Sodium 138, potassium 4.1, BUN 29, creatinine 1.2. Patient denies any chest discomfort this morning, he does state that after walking to the bathroom he did noticed himself to be short of breath. 10/06/2018 Patient was seen and examined this morning, he did have an episode of angina while walking through the night, this morning he walked in the [place] with physical therapy and has had no symptoms of angina or shortness of breath. Blood pressure 108/70 with a heart rate of 90, 94% on 2 L of oxygen. We will discontinue the IV heparin today, start the patient on Ranexa. Dr. Maria did have a lengthy discussion with the patient and his and the decision was made at this point in time to consider maximal medical therapy. Plan for possible discharge home in 24 hours if stable. 10/07/2018 Patient seen and examined today, doing well, breathing is stable, no chest discomfort. Blood pressure 135/80 with a heart rate in the 60s, 95% on 3 L of oxygen. We will discontinue the IV Lasix today and start on oral diuretics. We will also discontinue the heparin and initiate anticoagulation. White blood cell count 6.5, hemoglobin 13, platelet count 97. Sodium 138, potassium 3.9, BUN 27, creatinine 1.1 Patient is quite eager to be discharged home today. We will make him a follow-up appointment to see Dr. Maria in the office post discharge. Objective - Vital Signs Vital signs: Vital Signs Temp 97.0 F L 12/04/18 12:12 Pulse 80 10/07/18 12:14 Resp 20 10/07/18 12:14 BP 96/62 10/07/18 12:12 Pulse Ox 96 10/07/18 12:12 Intake & Output 10/06/18 10/07/18 10/07/18 18:59 06:59 18:59 Intake Total 1380 180 Output Total 1225 250 Balance 155 -70 Weight 113.4 kg Intake: Intake, IV Titration 500 Amount Heparin Sod,Pork in 0.45% 500 NaCl 25,000 unit In 0.45 % NaCl 1 500ml.bag @ 20 mls/hr IV .Q24H SOREN Rx#: [id number] Oral 880 180 Output: Urine 1225 250 Other: Voiding Method Urinal Urinal Urinal # Voids 1 1 # Bowel Movements 1 - Exam PHYSICAL EXAMINATION: GENERAL: 88-year-old gentleman in no acute distress at the time of my examination HEENT: Head is atraumatic, normocephalic. Pupils equal, round. Sclera anicteric. Conjunctiva are clear. Mucous membranes of the mouth are moist. Neck is supple. There is no elevated jugular venous pressure. No carotid bruit is heard. HEART EXAMINATION: Heart S1, S2 normal. No murmur or gallop heard. CHEST EXAMINATION: Lungs are clear with diminished air entry to the bases. No chest wall tenderness is noted on palpation or with deep breathing. ABDOMEN: Soft, nontender. Bowel sounds are heard. No organomegaly noted. Right groin soft, no evidence of any hematoma. EXTREMITIES: 2+ peripheral pulses with no evidence of peripheral edema and no calf tenderness noted. NEUROLOGIC patient is awake, alert and oriented 3 . . - Labs CBC & Chem 7: 10/07/18 06:41 10/07/18 06:41 Labs: Abnormal Lab Results - Last 24 Hours (Table) 10/06/18 10/06/18 10/07/18 Range/Units 16:25 20:25 06:06 Plt Count (150-450) k/uL APTT (22.0-30.0) sec BUN (9-20) mg/dL Glucose (74-99) mg/dL POC Glucose (mg/dL) 254 H 195 H 177 H (75-99) mg/dL 10/07/18 10/07/1810/07/18 Range/Units 06:41 06:41 06:41 Plt Count 97 L (150-450) k/uL APTT 71.5 H (22.0-30.0) sec BUN 27 H (9-20) mg/dL Glucose 168 H (74-99) mg/dL POC Glucose (mg/dL) (75-99) mg/dL 10/07/18 Range/Units 11:49 Plt Count (150-450) k/uL APTT (22.0-30.0) sec BUN (9-20) mg/dL Glucose (74-99) mg/dL POC Glucose (mg/dL) 211 H (75-99) mg/dL Assessment and Plan Plan: Assessment and plan #1 non-ST elevation myocardial infarction, status post cardiac catheterization which revealed severe multivessel coronary artery disease. Patient does not want consultation with cardiothoracic surgery, only wants to proceed with medical therapy. #2 hypertension #3 hyperlipidemia #4 diabetes #5 prior pacemaker implantation. Plan We will discontinue IV Lasix and start oral diuretics. Discontinue the IV heparin and start the patient on oral anticoagulation. He may be able to be discharged home today from cardiology's perspective, we'll make him a follow-up appointment to see Dr. Maria in the office. DNP note has been reviewed, I agree with a documented findings and plan of care. Patient was seen and examined.
[2018-10-07 15:36] VITALS: BP 123/72; PULSE 93; TEMP 97.4
[2018-10-07] MEDS ORDERED: FUROSEMIDE 20 MG TAB PO SCH (16:00)
[2018-10-07 16:41] LABS: Glucose,Whole Blood 143 mg/dL (75-99)
--- NOTE | 2018-10-07 19:22 | P.DS ---
Providers Date of admission: 10/03/18 00:49 Expected date of discharge: 10/07/18 Attending physician: Eris Calabrese Consults: 10/03/18 00:49 Consult Physician Routine Consulting Provider: [facility] Consult Reason/Comments: CHF Do you want consulting provider notified?: Yes, Notify in am 10/03/18 01:00 Consult Physician Routine Consulting Provider: Samir Oakley Consult Reason/Comments: established patient Do you want consulting provider notified?: Already Contacted Primary care physician: Samir Oakley Hospital Course: Final Diagnoses: -Non-ST elevation myocardial infarction, status post cardiac catheterization, three-vessel disease. Declined consult with cardiothoracic surgery, patient wishes to only proceed with medical therapy. -Acute CHF exacerbation, diastolic dysfunction from myocardial infarction -History of ITP with stable platelet count -History of TIA in the past without any residual weakness -History of subdural hematoma traumatic in the past with subdural hematoma and clot evacuation 3. -CHF with chronic diastolic dysfunction -Hypertension -Hyperlipidemia -Type 2 diabetes mellitus -Benign prostatic hypertrophy Hospital course:Patient is admitted for non-ST ration microinfarction for acute pulmonary edema secondary to myocardial infarction. Patient's echocardiogram showed normal ejection fraction patient underwent cardiac catheterization which showed triple vessel disease. Patient wishes to only proceed with medical therapy. Declined consult with cardiothoracic surgery. Maximizing medical therapy. Anticoagulation as per cardiology. Cleared by all consults for discharge. Patient is being discharged home in a stable condition with guarded prognosis. EXAMINATION: GENERAL: The patient is alert and oriented x3, not in any acute distress. Well developed, well nourished. HEENT: Pupils are round and equally reacting to light. EOMI. No scleral icterus. No conjunctival pallor. Normocephalic, atraumatic. No pharyngeal erythema. No thyromegaly. CARDIOVASCULAR: S1 and S2 present. No murmurs, rubs, or gallops. PULMONARY: Chest is clear to auscultation, no wheezing or crackles. ABDOMEN: Soft, nontender, nondistended, normoactive bowel sounds. No palpable organomegaly. MUSCULOSKELETAL: No joint swelling or deformity. EXTREMITIES: No cyanosis, clubbing, patient does have bilateral pedal edema NEUROLOGICAL: Gross neurological examination did not reveal any focal deficits. SKIN: No rashes. The impression and plan of care has been dictated as directed. : I performed a history and examination of this patient, discussed the same with the dictator. I agree with the dictator's note ,documented as a scribe. Any additional findings or plans will be noted. Time taken: 35 minutes Patient Condition at Discharge: Stable Plan - Discharge Summary Discharge Rx Participant: No New Discharge Prescriptions: New Apixaban [Eliquis] 5 mg PO BID #60 tab Aspirin 81 mg PO DAILY #30 chew Atorvastatin [Lipitor] 20 mg PO HS #30 tab Furosemide [Lasix] 60 mg PO BID@0900,1600 #180 tab Lisinopril [Zestril] 5 mg PO DAILY #30 tab Metoprolol Tartrate [Lopressor] 25 mg PO BID #60 tab Sennosides [Senokot] 8.6 mg PO BID tab Nitroglycerin Sl Tabs [Nitrostat] 0.4 mg SUBLINGUAL Q5M PRN #100 tab PRN Reason: Chest Pain Continue Terazosin [Hytrin] 5 mg PO HS HYDROcodone/APAP 7.5-325MG [Lamona 7.5-325] 1 tab PO TID PRN PRN Reason: Pain Isosorbide Mononitrate ER [Imdur] 30 mg PO QAM Insulin NPH Hum/Reg Insulin Hm [NovoLIN 70-30 100 UNIT/ML VIAL] 38 unit SQ QAM traZODone HCL 150 mg PO HS Finasteride [Proscar] 5 mg PO DAILY Multivitamins, Thera [Multivitamin (formulary)] 1 tab PO DAILY Cholecalciferol [Vitamin D3] 1,000 unit PO DAILY Naloxone HCl [Narcan] 4 mg NASAL DIRECTED Melatonin (Uknown Dose) 1 tab PO HS Sertraline [Zoloft] 50 mg PO DAILY Insulin NPH Hum/Reg Insulin Hm [NovoLIN 70-30 100 UNIT/ML VIAL] 34 unit SQ HS Discontinued Lisinopril [Zestril] 10 mg PO DAILY amLODIPine [Norvasc] 5 mg PO QAM Furosemide [Lasix] 40 mg PO BID Metoprolol Tartrate [Lopressor] 25 mg PO DAILY Simvastatin [Zocor] 20 mg PO BID Discharge Medication List HYDROcodone/APAP 7.5-325MG [Lamona 7.5-325] 1 tab PO TID PRN 05/29/16 [History] Insulin NPH Hum/Reg Insulin Hm [NovoLIN 70-30 100 UNIT/ML VIAL] 38 unit SQ QAM 05/29/16 [History] Isosorbide Mononitrate ER [Imdur] 30 mg PO QAM 05/29/16 [History] Terazosin [Hytrin] 5 mg PO HS 05/29/16 [History] traZODone HCL 150 mg PO HS 10/03/17 [History] Finasteride [Proscar] 5 mg PO DAILY 05/08/18 [History] Cholecalciferol [Vitamin D3] 1,000 unit PO DAILY 10/03/18 [History] Insulin NPH Hum/Reg Insulin Hm [NovoLIN 70-30 100 UNIT/ML VIAL] 34 unit SQ HS [History] Melatonin (Uknown Dose) 1 tab PO HS 10/03/18 [History] Multivitamins, Thera [Multivitamin (formulary)] 1 tab PO DAILY 10/03/18 [History ] Naloxone HCl [Narcan] 4 mg NASAL DIRECTED 10/03/18 [History] Sertraline [Zoloft] 50 mg PO DAILY 10/03/18 [History] Apixaban [Eliquis] 5 mg PO BID #60 tab 10/07/18 [Rx] Aspirin 81 mg PO DAILY #30 chew 10/07/18 [Rx] Atorvastatin [Lipitor] 20 mg PO HS #30 tab 10/07/18 [Rx] Furosemide [Lasix] 60 mg PO BID@0900,1600 #180 tab 10/07/18 [Rx] Lisinopril [Zestril] 5 mg PO DAILY #30 tab 10/07/18 [Rx] Metoprolol Tartrate [Lopressor] 25 mg PO BID #60 tab 10/07/18 [Rx] Nitroglycerin Sl Tabs [Nitrostat] 0.4 mg SUBLINGUAL Q5M PRN #100 tab 10/07/18 [ Rx] Sennosides [Senokot] 8.6 mg PO BID tab 10/07/18 [Rx] Follow up Appointment(s)/Referral(s): Samir Oakley DO [Primary Care Provider] - 10/21/18 2:45 pm (Saturday -earliest available appointment) Alanna Maria MD [STAFF PHYSICIAN] - 10/16/18 1:30 pm () Ambulatory/Diagnostic Orders: Complete Blood Count w/diff [LAB.AMB] Time Frame: 3 Days, Location: None Selected Patient Instructions/Handouts: *Surgery [facility] - After Heart Catheterization - Systems Developer Instructions, Left Heart Catheterization (DC) Discharge Disposition: HOME SELF-CARE
== END 2018-10-07 18:08 | disposition home or self-care (01) | DRG 280 ==
LOC: EC 21:26 → 3SCARD 10-03 00:49
PROVIDERS: ADMIT Internal Medicine; ATTEND Internal Medicine
PROC: 4A023N7 Measurement of Cardiac Sampling and Pressure, Left Heart, Percutaneous Approach (ICD-10-PCS; principal; 2018-10-04 10:56)
PROC: B2111ZZ Fluoroscopy of Multiple Coronary Arteries using Low Osmolar Contrast (ICD-10-PCS; principal; 2018-10-04 10:56)
DX: I21.4 Non-ST elevation (NSTEMI) myocardial infarction (principal); I50.33 Acute on chronic diastolic (congestive) heart failure; D69.3 Immune thrombocytopenic purpura; N40.0 Benign prostatic hyperplasia without lower urinary tract symptoms; E78.5 Hyperlipidemia, unspecified; I11.0 Hypertensive heart disease with heart failure; E11.9 Type 2 diabetes mellitus without complications; E66.9 Obesity, unspecified; D72.829 Elevated white blood cell count, unspecified; F32.9 Major depressive disorder, single episode, unspecified; F41.9 Anxiety disorder, unspecified; H35.30 Unspecified macular degeneration; I25.119 Atherosclerotic heart disease of native coronary artery with unspecified angina pectoris; Z96.641 Presence of right artificial hip joint; M19.90 Unspecified osteoarthritis, unspecified site; Z86.73 Personal history of transient ischemic attack (TIA), and cerebral infarction without residual deficits; Z68.36 Body mass index [BMI] 36.0-36.9, adult; I25.2 Old myocardial infarction; Z95.0 Presence of cardiac pacemaker; Z79.4 Long term (current) use of insulin; Z79.899 Other long term (current) drug therapy
CPT/HCPCS: 36415; 71045; 71046; 80048; 80053; 82550; 82553; 83036; 83735; 83880; 84443; 84484; 85025; 85610; 85730; 93005; 93306; 93458; 94660; 96365; 96366; 96367; 96375; 96376; 99285